=== PATIENT | male | born 1940 | race Caucasian/White ===

== ENCOUNTER 2017-07-15 14:43 | Inpatient (IN) | payer OTHER, MEDICARE ==
[~2017-07-15] VITALS: Ht 177.8 cm; Wt 58.5 kg
[2017-07-15] VITALS (12 sets, daily range): BP systolic 111–158; BP diastolic 52–70; PULSE 32–97; RESP 16–24; TEMP 97.4–98.7; O2SAT 95–100
[~2017-07-15 14:43] MED LIST: METO100T9 PO; MOTI25CH PO; ONDA4TAB7 PO; PROM25TA5 PO
[2017-07-15] MEDS ORDERED: ATOR40TA16 PO (15:05)
[2017-07-15] MEDS ORDERED: AMLO5TAB2 PO (15:05)
[2017-07-15] MEDS ORDERED: AMIO200T PO (15:05)
[2017-07-15] MEDS ORDERED: METO25TA3 PO (15:05)
[2017-07-15] MEDS ORDERED: ASPI-516 CHEW (15:05)
[2017-07-15] MEDS ORDERED: ATROPINE SULFATE 1 MG/10 ML SYRINGE ONE (15:09)
[2017-07-15 15:13] LABS: AUTOMATED NEUTROPHIL # 7.1 TH/MM3 (1.8-7.7); BASOPHIL # 0.1 TH/MM3 (0-0.2); BASOPHIL % 0.8 % (0.0-2.0); EOSINOPHIL # 0.1 TH/MM3 (0-0.4); EOSINOPHIL % 1.3 % (0.0-4.0); HEMATOCRIT 44.1 % (39.0-51.0); LYMPH % 13.5 % (9.0-44.0); LYMPHOCYTE # 1.2 TH/MM3 (1.0-4.8); MEAN CELL VOLUME 90.5 FL (80.0-100.0); MEAN CORPUSCULAR HEMOGLOBIN 29.2 PG (27.0-34.0); MEAN CORPUSCULAR HGB CONC 32.3 % (32.0-36.0); MONO % 6.6 % (0.0-8.0); NEUT % 77.8 % (16.0-70.0); PLATELET COUNT 176 TH/MM3 (150-450); RED BLOOD COUNT 4.88 MIL/MM3 (4.50-5.90); RED CELL DISTRIBUTION WIDTH 15.9 % (11.6-17.2); WHITE BLOOD COUNT 9.1 TH/MM3 (4.0-11.0)
[2017-07-15] MEDS ORDERED: CALCIUM GLUCONATE 10% 1 GM/10 ML VIAL IV PUSH ONE (15:15)
[2017-07-15] MEDS ORDERED: ATROPINE SULFATE 1 MG/ML VIAL IV PUSH PRN (15:15)
[2017-07-15] MEDS ORDERED: SODIUM CHLORIDE 0.9% FLUSH 10 ML FLUSH IVF PRN (15:15)
--- NOTE | 2017-07-15 15:18 | PD ---
HPI Chief Complaint: Cardiac Complaint Time Seen by Provider: 14:52 Travel History International Travel<30 days: No Contact w/Intl Traveler<30days: No Traveled to known affect area: No History of Present Illness HPI 76-year-old male arrives to the ER with dizziness and a sense of weakness. The dizziness was first noticed this morning and the patient notes his pulse was too slow to be read by his manual blood pressure cuff. He exercised a little bit at home and then the blood pressure cuff reported a pulse of 35. The patient states normally his heart rate is somewhat bradycardic in the 40s typically. He notes compliance with metoprolol and amlodipine. He started amlodipine about 3 weeks ago. Strict compliance reported. He describes as vague intermittent chest tightness over the past couple weeks however does not have chest pain at the time of ER evaluation. He denies shortness of breath. He's had no loss of consciousness today. The patient underwent coronary catheterization in September revealing multiple vessel disease and he subsequently went to CABG performed at [facility]. He also underwent myomectomy due to hypertrophic cardiomyopathy. PFSH Past Medical History Hx Anticoagulant Therapy: Yes (ASA) Heart Rhythm Problems: Yes Cardiovascular Problems: Yes (Hypertension, triple bypass) Chemotherapy: Yes Diminished Hearing: No Gastrointestinal Disorders: No Hypertension: Yes Integumentary: No Thyroid Disease: No Influenza Vaccination: No ?: Not Past Surgical History Abdominal Aneurysm Repair: Yes (01/2017) Coronary Artery Bypass Graft: Yes (triple) Thoracic Surgery: No Social History Alcohol Use: Yes Tobacco Use: Yes Allergies-Medications (Allergen,Severity, Reaction): Coded Allergies: No Known Allergies (Unverified Allergy, Unknown, 07/15/17) Reported Meds & Prescriptions Reported Meds & Active Scripts Active Reported Atorvastatin (Atorvastatin Calcium) 40 Mg Tab 40 Mg PO HS Metoprolol Tartrate 25 Mg Tab 25 Mg PO BID Amiodarone (Amiodarone HCl) 200 Mg Tab 200 Mg PO DAILY Amlodipine (Amlodipine Besylate) 5 Mg Tab 5 Mg PO DAILY Aspirin 81 Mg Chew 81 Mg CHEW DAILY Review of Systems Except as stated in HPI: all other systems reviewed are Neg General / Constitutional: No: Fever Cardiovascular: Positive: Chest Pain or Discomfort, No: Dyspnea on exertion Neurologic: Positive: Dizziness Physical Exam Narrative GENERAL: 76-year-old male well-nourished well-developed speaking full sentences mild distress SKIN: Focused skin assessment warm/dry. HEAD: Atraumatic. Normocephalic. EYES: Pupils equal and round. No scleral icterus. No injection or drainage. ENT: No nasal bleeding or discharge. Mucous membranes pink and moist. NECK: Trachea midline. No JVD. CARDIOVASCULAR: Heart rate approximately 36. Regular. Skin is warm and dry. Well-healed sternotomy scar. RESPIRATORY: No accessory muscle use. Clear to auscultation. Breath sounds equal bilaterally. GASTROINTESTINAL: Abdomen soft, non-tender, nondistended. Hepatic and splenic margins not palpable. MUSCULOSKELETAL: No obvious deformities. No clubbing. No cyanosis. No edema. NEUROLOGICAL: Awake and alert. No obvious cranial nerve deficits. Motor grossly within normal limits. Normal speech. PSYCHIATRIC: Appropriate mood and affect; insight and judgment normal. Data Data Last Documented VS Vital Signs Date Time Temp Pulse Resp B/P (MAP) Pulse Ox O2 Delivery O2 Flow Rate FiO2 07/15/17 15:31 37 134/60 (84) 122/52 (75) 07/15/17 15:20 98 Nasal Cannula 2.00 07/15/17 15:15 20 07/15/17 15:05 97.4 Vital signs reviewed Orders Orders Electrocardiogram (07/15/17 15:01) Basic Metabolic Panel (Bmp) (07/15/17 15:01) Ckmb (Isoenzyme) Profile (07/15/17 15:01) Complete Blood Count With Diff (07/15/17 15:01) Magnesium (Mg) (07/15/17 15:01) Prothrombin Time / Inr (Pt) (07/15/17 15:01) Act Partial Throm Time (Ptt) (07/15/17 15:01) Troponin I (07/15/17 15:01) Chest, Single Ap (07/15/17 15:01) Ecg Monitoring (07/15/17 15:01) Bilateral Bp Monitoring (07/15/17 15:01) Iv Access Insert/Monitor (07/15/17 15:01) Oximetry (07/15/17 15:01) Oxygen Administration (07/15/17 15:01) Sodium Chloride 0.9% Flush (Ns Flush) (07/15/17 15:15) Atropine Inj (Atropine Inj) (07/15/17 15:15) Calcium Gluconate Inj (Calcium Gluconate (07/15/17 15:15) Atropine Inj (Atropine Inj) (07/15/17 15:09) Atropine Inj (Atropine Inj) (07/15/17 15:45) Atropine Inj (Atropine Inj) (07/15/17 15:45) Admit Order (Ed Use Only) (07/15/17 ) Self Propelled Mining Machine Operator / Telemetry [id number] (07/15/17 15:45) Vital Signs (Adult) Q4H (07/15/17 15:45) Diet Npo (07/15/17 Dinner) Activity Bed Rest (07/15/17 15:45) Notify Dr: Other (07/15/17 15:45) Labs Laboratory Tests Test 07/15/17 15:09 White Blood Count 9.1 TH/MM3 Red Blood Count 4.88 MIL/MM3 Hemoglobin 14.2 GM/DL Hematocrit 44.1 % Mean Corpuscular Volume 90.5 FL Mean Corpuscular Hemoglobin 29.2 PG Mean Corpuscular Hemoglobin Concent 32.3 % Red Cell Distribution Width 15.9 % Platelet Count 176 TH/MM3 Mean Platelet Volume 9.0 FL Neutrophils (%) (Auto) 77.8 % Lymphocytes (%) (Auto) 13.5 % Monocytes (%) (Auto) 6.6 % Eosinophils (%) (Auto) 1.3 % Basophils (%) (Auto) 0.8 % Neutrophils # (Auto) 7.1 TH/MM3 Lymphocytes # (Auto) 1.2 TH/MM3 Monocytes # (Auto) 0.6 TH/MM3 Eosinophils # (Auto) 0.1 TH/MM3 Basophils # (Auto) 0.1 TH/MM3 CBC Comment DIFF FINAL Differential Comment Prothrombin Time 10.7 SEC Prothromb Time International Ratio 1.0 RATIO Activated Partial Thromboplast Time 28.9 SEC Blood Urea Nitrogen 31 MG/DL Creatinine 1.80 MG/DL Random Glucose 77 MG/DL Calcium Level 8.5 MG/DL Magnesium Level 2.3 MG/DL Sodium Level 136 MEQ/L Potassium Level 4.7 MEQ/L Chloride Level 103 MEQ/L Carbon Dioxide Level 25.9 MEQ/L Anion Gap 7 MEQ/L Estimat Glomerular Filtration Rate 37 ML/MIN Total Creatine Kinase 61 U/L Troponin I 0.02 NG/ML MDM Medical Decision Making Medical Screen Exam Complete: Yes Emergency Medical Condition: Yes Medical Record Reviewed: Yes Differential Diagnosis NSTEMI, unstable angina, coronary vasospasm, PE, PTX, aortic dissection, pericarditis, myocarditis, endocarditis, PNA, esophageal disease, aneurysm, musculoskeletal etiologies, anxiety, cocaine/sympathomimetic abuse Narrative Course EKG shows a sinus bradycardia with a rate of 34 left bundle branch block morphology. The left bundle-branch morphology has been observed before most recently September 2015. Shortly following arrival the patient received atropine 0.5 twice followed by a gram of calcium gluconate. The heart rate increased 45 for about less than a minute and then decreased to 35 again. Patient has no chest pain or shortness of breath although does report some mild dizziness. His skin has been warm and dry since arrival and the blood pressure is been as high as 150/90. Case was discussed with Dr. Bailey, as patient follows with Dr. Henderson, who advises transfer to the main site in [facility]. CBC & BMP Diagram 07/15/17 15:09 Calcium Level 8.5, Magnesium Level 2.3 Troponin 0.02 Last 24 hours Impressions Chest X-Ray 07/15/17 1501 Signed Impressions: Service Date/Time: Tuesday, July 16, 2017 03:10 - CONCLUSION: Normal examination. Clips and wires suggest CABG. Shelton Martinez MD A second 1 mg dose of atropine ordered along with a second dose of calcium gluconate. Glucagon bolus and drip initiated. Case d/w Dr Mckeon for note keeper service Pt monitored in ER with HR trending toward 34 with stable BP as listed here: Vital Signs Date Time Temp Pulse Resp B/P (MAP) Pulse Ox O2 Delivery O2 Flow Rate FiO2 07/15/17 15:31 37 134/60 (84) 122/52 (75) 07/15/17 15:20 98 Nasal Cannula 2.00 07/15/17 15:15 38 20 153/64 (93) 99 Nasal Cannula 2.00 07/15/17 15:05 97.4 33 18 146/63 (90) 97 Room Air 07/15/17 15:00 33 07/15/17 14:45 98.7 36 16 117/53 (74) 100 NO significant change after glucagon although only 1 mg IV given 2/2 short supply in pharmacy Pt notes he runs relatively bradycardic typically in the 40s over the past few years Critical Care Narrative Aggregate critical care time was 35 minutes. Time to perform other separately billable procedures was not included in the critical care time. My time did not include minutes spent treating any other patients simultaneously or on activities that did not directly contribute to the patient's treatment. The services I provided to this patient were to treat and/or prevent clinically significant deterioration that could result in: Cardiopulmonary arrest, hemodynamic instability I provided critical care services requiring my management, as noted below: Chart data review, documentation time, medication orders and management, vital sign assessments/reviewing monitor data, ordering and reviewing lab tests, ordering and interpreting/reviewing x-rays and diagnostic studies, care of the patient and discussion of the patient with the admitting physicians. Diagnosis Primary Impression: Bradycardia Admitting Information Admitting Physician Requests: Javan Wolfe MD Jul 15, 2017 15:18
[2017-07-15 15:20] LABS: HEMO FLAGS DIFF FINAL
[2017-07-15 15:22] LABS: POTASSIUM 4.7 MEQ/L (3.5-5.1)
--- NOTE | 2017-07-15 15:22 | RADRPT ---
EXAM DATE/TIME: 07/15/2017 15:04 CORRECTION Corrected on: July 21, 2017; fixed date and time [facility] COMPARISON: No previous studies available for comparison. INDICATIONS : Chest pain. MEDICAL HISTORY : None. SURGICAL HISTORY : None. ENCOUNTER: Initial ACUITY: 1 day PAIN SCORE: 7/10 LOCATION: Bilateral chest FINDINGS: A single view of the chest demonstrates the lungs to be symmetrically aerated without evidence of mas s, infiltrate or effusion. The cardiomediastinal contours are unremarkable. Osseous structures are intact. CONCLUSION: Normal examination. Clips and wires suggest CABG. Shelton Martinez MD on July 15, 2017 at 15:20 Board Certified Radiologist. Board Certified Radiologist. This report was verified electronically.
[2017-07-15 15:25] LABS: BICARBONATE 25.9 MEQ/L (21.0-32.0); MAGNESIUM 2.3 MG/DL (1.5-2.5)
[2017-07-15] MEDS ORDERED: ATROPINE SULFATE 1 MG/ML VIAL IV PUSH ONE ×2 (15:45)
[2017-07-15] MEDS ORDERED: ONDANSETRON HCL 4 MG/2 ML VIAL IV PUSH PRN ×2 (16:00→21:15)
[2017-07-15] MEDS ORDERED: GLUCAGON 1 MG/ML VIAL IV PUSH PRN (16:00)
[2017-07-15] MEDS ORDERED: ATROPINE SULFATE 1 MG/10 ML SYRINGE IV PUSH ONE (16:00)
[2017-07-15] MEDS ORDERED: CALCIUM GLUCONATE INJ 1 GM in DEXTROSE 5% IN WATER 100ML INJ 100 ML IV ONE ×2 (16:00)
[2017-07-15 16:09] LABS: APTT (PATIENT) 28.9 SEC (24.3-30.1); PROTHROMBIN TIME - PATIENT 10.7 SEC (9.8-11.6)
[2017-07-15] MEDS ORDERED: GLUCAGON 1 MG/ML VIAL IV PUSH ONE (16:15)
[2017-07-15] MEDS ORDERED: GLUCAGON INJ 20 MG in DEXTROSE 5% IN WATER 100ML INJ 80 ML IV PRN ×2 (17:00)
[2017-07-15] MEDS: SODIUM CHLOR 0.9% 1000 ML INJ 1,000 ML IV SCH (21:13)
[2017-07-15] MEDS ORDERED: hydrALAZINE HCL 20 MG/ML VIAL IV PUSH PRN (21:15)
[2017-07-15] MEDS ORDERED: BISACODYL 10 MG SUPP RECTAL PRN (21:15)
[2017-07-15] MEDS ORDERED: SODIUM CHLORIDE 0.9% FLUSH 10 ML FLUSH IV FLUSH PRN (21:15)
[2017-07-15] MEDS ORDERED: RESP: ALBUTEROL 2.5 MG/IPRATROPIUM 0.5 MG NEB (PRN) INH (21:15)
[2017-07-15] MEDS ORDERED: ACETAMINOPHEN 325 MG TAB PO PRN (21:15)
[2017-07-15] MEDS ORDERED: ZOLPIDEM TARTRATE 5 MG TAB PO PRN (21:15)
[2017-07-15] MEDS ORDERED: SENNOSIDES 8.6 MG TAB PO PRN (21:15)
[2017-07-15] MEDS ORDERED: MAGNESIUM HYDROXIDE SUSP 30 ML CUP PO PRN (21:15)
[2017-07-15] MEDS ORDERED: CHLORHEXIDINE GLUCONATE 2 % 1 PACK (2 CLOTHS) TOP PRN (21:15)
[2017-07-15] MEDS ORDERED: LACTULOSE SYRUP 20 GM/30 ML CUP PO PRN (21:15)
[2017-07-15] MEDS ORDERED: MISCELLANEOUS NURSING INFORMATION XX SCH (21:15)
--- NOTE | 2017-07-15 21:17 | HHI.HP ---
HPI Service Critical Care Medicine Primary Care Physician Abilio Childers MD Admission Diagnosis Bradycardia Diagnosis: Travel History International Travel<30 Days: No Contact w/Intl Traveler <30 Da: No Traveled to Known Affected Are: No History of Present Illness 76-year-old male presented initially to emergency department at [place] with dizziness and a sense of weakness. He has noticed the dizziness for the first time today in the morning when he tries to measure his blood pressure and was unable to obtain any readings so he checked his his pulse which was too slow to be read by his manual blood pressure cuff as well. He exercised a little bit at home to increase his heartrate and then the blood pressure cuff reported a pulse of 35. The patient states normally his heart rate is somewhat bradycardic in the 40s typically. He admits compliance with metoprolol and amlodipine. He started amlodipine about 3 weeks ago. He describes also some vague intermittent chest tightness over the past couple weeks however did not have a chest pain at the time of ER evaluation neither during my assessment. He denies shortness of breath. He's had no loss of consciousness today just dizziness. The patient underwent coronary catheterization in September revealing multiple vessel disease and he subsequently went to CABG performed at [facility]. He also underwent myomectomy due to hypertrophic cardiomyopathy. Review of Systems Constitutional: COMPLAINS OF: Diaphoretic episodes, Fatigue, DENIES: Fever, Weight gain, Weight loss, Chills, Dizziness, Change in appetite, Night Sweats Endocrine: DENIES: Heat/cold intolerance, Polydipsia, Polyuria, Polyphagia Eyes: COMPLAINS OF: Blurred vision, DENIES: Diplopia, Eye inflammation, Eye pain, Vision loss, Photosensitivity, Double Vision Ears, nose, mouth, throat: DENIES: Tinnitus, Hearing loss, Vertigo, Nasal discharge, Oral lesions, Throat pain, Hoarseness, Ear Pain, Running Nose, Epistaxis, Sinus Pain, Toothache, Odynophagia Respiratory: DENIES: Apneas, Cough, Snoring, Wheezing, Hemoptysis, Sputum production, Shortness of breath Cardiovascular: COMPLAINS OF: Chest pain, DENIES: Palpitations, Syncope, Dyspnea on Exertion, PND, Lower Extremity Edema, Orthopnea, Claudication Gastrointestinal: DENIES: Abdominal pain, Black stools, Bloody stools, Constipation, Diarrhea, Nausea, Vomiting, Difficulty Swallowing, Anorexia Genitourinary: DENIES: Sexual dysfunction, Urinary frequency, Urinary incontinence, Urgency, Hematuria, Dysuria, Nocturia, Penile Discharge, Testicular Pain, Testicular Swelling Musculoskeletal: DENIES: Joint pain, Muscle aches, Stiffness, Joint Swelling, Back pain, Neck pain Integumentary: DENIES: Abnormal pigmentation, Nail changes, Pruritus, Rash Hematologic/lymphatic: DENIES: Bruising, Lymphadenopathy Immunologic/allergic: DENIES: Eczema, Urticaria Neurologic: DENIES: Abnormal gait, Headache, Localized weakness, Paresthesias, Seizures, Speech Problems, Tremor, Poor Balance Psychiatric: DENIES: Anxiety, Confusion, Mood changes, Depression, Hallucinations, Agitation, Suicidal Ideation, Homicidal Ideation, Delusions Past Family Social History Allergies: Coded Allergies: No Known Allergies (Unverified Allergy, Unknown, 07/15/17) Past Medical History Hx Anticoagulant Therapy: Yes (ASA) Heart Rhythm Problems: Yes Cardiovascular Problems: Yes (Hypertension, triple bypass) Hypertension: Yes Past Surgical History Abdominal Aneurysm Repair: Yes (01/2017) Coronary Artery Bypass Graft: Yes (triple) Reported Medications Reported Meds & Active Scripts Active Reported Atorvastatin (Atorvastatin Calcium) 40 Mg Tab 40 Mg PO HS Metoprolol Tartrate 25 Mg Tab 25 Mg PO BID Amiodarone (Amiodarone HCl) 200 Mg Tab 200 Mg PO DAILY Amlodipine (Amlodipine Besylate) 5 Mg Tab 5 Mg PO DAILY Aspirin 81 Mg Chew 81 Mg CHEW DAILY Active Ordered Medications Current Medications Medications (Trade) Dose Ordered Sig/Cody Route PRN Reason Start Time Stop Time Status Last Admin Dose Admin Sodium Chloride (NS Flush) 2 ml UNSCH PRN IVF FLUSH AFTER USING IV ACCESS 07/15/17 15:15 07/15/17 15:14 Aspirin (Aspirin Chew) 81 mg DAILY CHEW 07/16/17 09:00 Atorvastatin Calcium (Lipitor) 40 mg HS PO 07/16/17 21:00 Hydralazine HCl (Apresoline Inj) 20 mg Q4H PRN IV PUSH SBP>160, DBP>90 07/15/17 21:15 Sodium Chloride 1,000 ml @ 84 mls/hr [id number] IV 07/15/17 21:13 Sodium Chloride (NS Flush) 2 ml UNSCH PRN IV FLUSH FLUSH AFTER USING IV ACCESS 07/15/17 21:15 Sodium Chloride (NS Flush) 2 ml BID IV FLUSH 07/16/17 09:00 Acetaminophen (Tylenol) 650 mg Q6H PRN PO PAIN 1-10 AND/OR FEVER >101F 07/15/17 21:15 Ondansetron HCl (Zofran Inj) 4 mg Q6H PRN IV PUSH NAUSEA OR VOMITING 07/15/17 21:15 Zolpidem Tartrate (Ambien) 5 mg HS PRN PO INSOMNIA 07/15/17 21:15 Albuterol/ Ipratropium (Duoneb Neb) 1 ampule Q2HR NEB PRN INH WHEEZING 07/15/17 21:15 Heparin Sodium (Porcine) (Heparin Inj) 5,000 units Q8H SQ 07/15/17 22:00 Miscellaneous Information 1 [id number] XX 07/15/17 21:15 Chlorhexidine Gluconate (Chlorhexidine 2% Cloth) 3 pack Taper DAILY@04 TOP 07/16/17 04:00 07/12/18 03:59 Chlorhexidine Gluconate (Chlorhexidine 2% Cloth) 3 pack UNSCH PRN TOP HYGIENIC CARE 07/15/17 21:15 Senna/Docusate Sodium (Kendra-Colace) 1 tab BID PO 07/16/17 09:00 Magnesium Hydroxide (Milk Of Magnesia Liq) 30 ml Q12H PRN PO Mild constipation 07/15/17 21:15 Sennosides (Senokot) 17.2 mg Q12H PRN PO Moderate constipation 07/15/17 21:15 Bisacodyl (Dulcolax Supp) 10 mg DAILY PRN RECTAL SEVERE CONSITIPATION 07/15/17 21:15 Lactulose (Lactulose Liq) 30 ml DAILY PRN PO SEVERE CONSITIPATION 07/15/17 21:15 Family History No family history of early coronary artery disease or malignancy Social History Denies History of tobacco alcohol or illicit drug abuse Physical Exam Vital Signs Vital Signs Date Time Temp Pulse Resp B/P (MAP) Pulse Ox O2 Delivery O2 Flow Rate FiO2 07/15/17 18:35 98.2 33 24 132/62 (85) 100 07/15/17 17:48 07/15/17 17:35 34 17 121/62 (81) 100 Nasal Cannula 2.00 07/15/17 17:05 32 18 111/58 (75) 100 Nasal Cannula 2.00 07/15/17 16:35 36 18 125/53 (77) 98 Nasal Cannula 2.00 07/15/17 16:25 16 99 Nasal Cannula 2.00 07/15/17 16:05 36 18 128/54 (78) 98 Nasal Cannula 2.00 07/15/17 15:31 37 134/60 (84) 122/52 (75) 07/15/17 15:20 98 Nasal Cannula 2.00 07/15/17 15:15 38 20 153/64 (93) 99 Nasal Cannula 2.00 07/15/17 15:05 97.4 33 18 146/63 (90) 97 Room Air 07/15/17 15:00 33 07/15/17 14:45 98.7 36 16 117/53 (74) 100 Physical Exam GENERAL: Well-nourished, well-developed patient. SKIN: Warm and dry. HEAD: Normocephalic. EYES: No scleral icterus. No injection or drainage. NECK: Supple, trachea midline. No JVD or lymphadenopathy. CARDIOVASCULAR: Regular rate and rhythm without murmurs, gallops, or rubs. RESPIRATORY: Breath sounds equal bilaterally. No accessory muscle use. GASTROINTESTINAL: Abdomen soft, non-tender, nondistended. MUSCULOSKELETAL: No cyanosis, or edema. BACK: Nontender without obvious deformity. NEURO EXAM: GCS: M 6 V 5 E 4 Mental Status: The patient is alert and oriented to person, place, and time with normal speech. Cranial Nerves: Visual acuity intact bilaterally. Visual harvey normal in all quadrants. Pupils are round, reactive to light. Extraocular movements are intact without ptosis. Hearing is normal bilaterally. Voice is normal. Tongue protrudes midline and moves symmetrically. Reflexes: Biceps, patellar, and Achilles are 2/4 bilaterally. No clonus. Sensation: Sensation is intact bilaterally to pain and light touch. Two-point discrimination is intact. Motor: Good muscle tone. Strength is 5/5 bilaterally. Cerebellar: Lgtady-ac-ioin and ulzy-[id number]-pkwb test normal bilaterally. Laboratory Laboratory Tests Test 07/15/17 15:09 White Blood Count 9.1 Red Blood Count 4.88 Hemoglobin 14.2 Hematocrit 44.1 Mean Corpuscular Volume 90.5 Mean Corpuscular Hemoglobin 29.2 Mean Corpuscular Hemoglobin Concent 32.3 Red Cell Distribution Width 15.9 Platelet Count 176 Mean Platelet Volume 9.0 Neutrophils (%) (Auto) 77.8 Lymphocytes (%) (Auto) 13.5 Monocytes (%) (Auto) 6.6 Eosinophils (%) (Auto) 1.3 Basophils (%) (Auto) 0.8 Neutrophils # (Auto) 7.1 Lymphocytes # (Auto) 1.2 Monocytes # (Auto) 0.6 Eosinophils # (Auto) 0.1 Basophils # (Auto) 0.1 CBC Comment DIFF FINAL Differential Comment Prothrombin Time 10.7 Prothromb Time International Ratio 1.0 Activated Partial Thromboplast Time 28.9 Blood Urea Nitrogen 31 Creatinine 1.80 Random Glucose 77 Calcium Level 8.5 Magnesium Level 2.3 Sodium Level 136 Potassium Level 4.7 Chloride Level 103 Carbon Dioxide Level 25.9 Anion Gap 7 Estimat Glomerular Filtration Rate 37 Total Creatine Kinase 61 Troponin I 0.02 Result Diagram: 07/15/17 1509 07/15/17 1509 Imaging Last 24 hours Impressions Chest X-Ray 07/15/17 1501 Signed Impressions: Service Date/Time: Sunday, July 16, 2017 03:10 - CONCLUSION: Normal examination. Clips and wires suggest CABG. MD Marnie Cruz VTE Risk Assessment Caprini VTE Risk Assessment: Mod/High Risk (score >= 2) Caprini Risk Assessment Model Point Value = 1 Point Value = 2 Point Value = 3 Point Value = 5 Age 41-60 Minor surgery BMI > 25 kg/m2 Swollen legs Varicose veins or History of unexplained or recurrent spontaneous Oral contraceptives or hormone replacement Sepsis (< 1 month) Serious lung disease, including pneumonia (< 1 month) Abnormal pulmonary function Acute myocardial infarction Congestive heart failure (< 1 month) History of inflammatory bowel disease Medical patient at bed rest Age 61-74 Arthroscopic surgery Major open surgery (> 45 min) Laparoscopic surgery (> 45 min) Malignancy Confined to bed (> 72 hours) Immobilizing plaster cast Central venous access Age >= 75 History of VTE Family history of VTE Factor V Leiden Prothrombin [id number] Lupus anticoagulant Anticardiolipin antibodies Elevated serum homocysteine Heparin-induced thrombocytopenia Other congenital or acquired thrombophilia Stroke (< 1 month) Elective arthroplasty Hip, pelvis, or leg fracture Acute spinal cord injury (< 1 month) Prophylaxis Regimen Total Risk Factor Score Risk Level Prophylaxis Regimen 0-1 Low Early ambulation 2 Moderate Order ONE of the following: *Sequential Compression Device (SCD) *Heparin 5000 units SQ BID 3-4 Higher Order ONE of the following medications: *Heparin 5000 units SQ TID *Enoxaparin/Lovenox 40 mg SQ daily (WT < 150 kg, CrCl > 30 mL/min) *Enoxaparin/Lovenox 30 mg SQ daily (WT < 150 kg, CrCl > 10-29 mL/min) *Enoxaparin/Lovenox 30 mg SQ BID (WT < 150 kg, CrCl > 30 mL/min) AND/OR *Sequential Compression Device (SCD) 5 or more Highest Order ONE of the following medications: *Heparin 5000 units SQ TID (Preferred with Epidurals) *Enoxaparin/Lovenox 40 mg SQ daily (WT < 150 kg, CrCl > 30 mL/min) *Enoxaparin/Lovenox 30 mg SQ daily (WT < 150 kg, CrCl > 10-29 mL/min) *Enoxaparin/Lovenox 30 mg SQ BID (WT < 150 kg, CrCl > 30 mL/min) AND *Sequential Compression Device (SCD) Assessment and Plan Assessment and Plan Bradycardia - Hold metoprolol and amiodarone - Transcutaneous pacer pads - Telemetry - Further management per patient's system software developer Dr. Portillo Hypotension - Due to above - Improving with improved heart rate - Dopamine if needed Altered mental status with dizziness - Due to bradycardia and hypotension - Monitor neuro checks per unit protocol Dyslipidemia - Atorvastatin Cardiomyopathy - Management per cardiology Coronary artery disease - Continue aspirin - Atorvastatin - Series of troponins and EKGs DVT GI prophylaxis - Teds SCDs - Subcutaneous heparin - Heart healthy diet Critical Care: The total critical care time was 35 minutes. Time to perform other separately billable procedures was not included in the critical care time. Shahbaz Pompa MD Jul 15, 2017 9:17 pm
[2017-07-15] MEDS: HEPARIN SODIUM - SQ 10,000 UNITS/ML VIAL SQ SCH (23:33)
[2017-07-16] VITALS (12 sets, daily range): BP systolic 133–166; BP diastolic 60–74; PULSE 40–47; RESP 19–22; TEMP 97.6–98.8; O2SAT 95–97
[2017-07-16] MEDS: CHLORHEXIDINE GLUCONATE 2 % 1 PACK (2 CLOTHS) TOP SCH (04:00)
[2017-07-16 04:21] LABS: AUTOMATED NEUTROPHIL # 4.4 TH/MM3 (1.8-7.7); BASOPHIL # 0.1 TH/MM3 (0-0.2); BASOPHIL % 1.1 % (0.0-2.0); EOSINOPHIL # 0.1 TH/MM3 (0-0.4); EOSINOPHIL % 1.5 % (0.0-4.0); HEMATOCRIT 40.5 % (39.0-51.0); HEMO FLAGS DIFF FINAL; LYMPH % 21.6 % (9.0-44.0); LYMPHOCYTE # 1.4 TH/MM3 (1.0-4.8); MEAN CELL VOLUME 90.7 FL (80.0-100.0); MEAN CORPUSCULAR HEMOGLOBIN 31.2 PG (27.0-34.0); MEAN CORPUSCULAR HGB CONC 34.3 % (32.0-36.0); MONO % 8.9 % (0.0-8.0); NEUT % 66.9 % (16.0-70.0); PLATELET COUNT 139 TH/MM3 (150-450); RED BLOOD COUNT 4.47 MIL/MM3 (4.50-5.90); RED CELL DISTRIBUTION WIDTH 16.3 % (11.6-17.2); WHITE BLOOD COUNT 6.6 TH/MM3 (4.0-11.0)
[2017-07-16 04:45] LABS: ANION GAP 7 MEQ/L (5-15); AST (GOT) 18 U/L (15-37); BICARBONATE 24.9 MEQ/L (21.0-32.0); BLOOD UREA NITROGEN 27 MG/DL (7-18); CHLORIDE 108 MEQ/L (98-107); GLOMERULAR FILTRATION RATE 53 ML/MIN (>89); POTASSIUM 4.1 MEQ/L (3.5-5.1); SODIUM (NA) 140 MEQ/L (136-145)
[2017-07-16 04:46] LABS: ALT (GPT) 22 U/L (12-78)
[2017-07-16 04:48] LABS: ALKALINE PHOSPHATASE 105 U/L (45-117); TOTAL BILIRUBIN ADULT 0.6 MG/DL (0.2-1.0)
[2017-07-16] MEDS: HEPARIN SODIUM - SQ 10,000 UNITS/ML VIAL SQ SCH ×3 (05:06→21:16)
[2017-07-16] MEDS: SODIUM CHLORIDE 0.9% FLUSH 10 ML FLUSH IV FLUSH SCH ×2 (09:25→21:00)
[2017-07-16] MEDS: DOCUSATE SODIUM 50 MG/SENNA 8.6 MG TAB PO SCH ×2 (09:25→21:00)
[2017-07-16] MEDS: SODIUM CHLOR 0.9% 1000 ML INJ 1,000 ML IV SCH (09:25)
[2017-07-16] MEDS: ASPIRIN 81 MG CHEW TAB CHEW SCH (09:25)
--- NOTE | 2017-07-16 11:43 | MB ---
cc: SUE BERGMAN DO DATE OF CONSULTATION: 07/16/17 REASON FOR CONSULTATION Symptomatic bradycardia. HISTORY OF PRESENT ILLNESS Jesus Guadalupe is a pleasant 76-year-old male who sees my partner Dr. Henderson in the office and presented to the emergency department at [facility] with dizziness and a sense of weakness. He woke up the day before and was noted to be dizzy in the morning and attempted to take his blood pressure and was unable to obtain any readings so he checked his pulse which was too slow to read by his manual blood pressure cuff as well. He decided to exercise a little bit to try to increase his heart rate and blood pressure, and he then attempted to get his heart rate again and his machine states that it was 35. The patient states that his normal heart rate is somewhere in the mid 40s. He has been on metoprolol for some time. He is on amiodarone but overall is unsure why or when this was started possibly when he had his abdominal aortic aneurysm surgery and has recently been started on amlodipine around three weeks ago. In discussing with him his other symptoms, he states that he has never had chest pain or pressure and is not feeling overall short of breath. Lastly, he has not lost consciousness just been dizzy more over the past 24 hours. PAST MEDICAL HISTORY 1. Coronary artery disease. 2. Hypertension. 3. Previous abdominal aortic aneurysm. 4. BPH. 5. Hyperlipidemia. 6. History of hypertrophic cardiomyopathy. 7. Peripheral artery disease. PAST SURGICAL HISTORY 1. Cardiac catheterization (October 01, 2015): Right coronary artery mid to distal RCA 70%, left main no significant disease, left circumflex/obtuse marginal mid stenosis 60% between the first and second marginal arteries, LAD mid to distal is diffusely diseased up to 90%. 2. CABG x3 (2015 at [facility]). 3. Myomectomy at the time of CABG (2015 at [facility]). 4. Open abdominal aneurysm repair (January, at [facility]). ALLERGIES NO KNOWN DRUG ALLERGIES. MEDICATIONS 1. Amiodarone 200 mg daily. 2. Lipitor 40 mg every night. 3. Metoprolol tartrate 25 mg b.i.d. 4. Amlodipine 5 mg daily. 5. Aspirin 81 mg daily. FAMILY HISTORY Denies premature coronary artery disease or sudden cardiac within the family. SOCIAL HISTORY Denies drug abuse. Smokes about 5-10 cigarettes a day. Will drink socially rarely. REVIEW OF SYSTEMS 14-systems were reviewed including osteopathic, pertinent positives and negatives above otherwise negative. PHYSICAL EXAMINATION VITAL SIGNS: Temperature 98.8, heart rate 43, blood pressure 133/60, respirations 20, pulse ox 96% on 2 liters. GENERAL: In general, the patient appears well in no acute distress. Alert, awake and oriented x3. HEAD, EYES, EARS, NOSE AND THROAT: Extraocular muscles intact. Mucous membranes moist. NECK: Supple. No JVD at 45 degrees. No carotid bruits heard bilaterally. Carotid upstroke is brisk in nature. HEART: Heart is regular rhythm but bradycardic. There is a 2/6 holosystolic murmur noted at the apex. LUNGS: Clear to auscultation bilaterally. No wheezes, rales or rhonchi. ABDOMEN: Abdomen is soft, nontender, nondistended. No organomegaly noted. EXTREMITIES: No clubbing, cyanosis or edema. Femoral and distal pulses intact bilaterally. NEUROLOGICAL: No focal deficits. SKIN: Warm, dry and intact. OSTEOPATHIC: No kyphoscoliosis, lordosis or paraspinal tender points. LABORATORY FINDINGS Hemoglobin 13.9, hematocrit 40.5, platelets 139. Potassium 4.1, BUN 27, creatinine 1.32, troponin negative x3. Electrocardiogram (July 16, 2017 at 0245): Sinus rhythm with first-degree AV block, left bundle branch block with secondary ST-T wave changes. IMPRESSIONS 1. Symptomatic bradycardia. 2. Coronary artery disease with a history of CABG x3 (September, at [facility]). 3. History of [place] status post myomectomy September, at [facility]). 4. History of abdominal aortic aneurysm status post open repair (January, at [facility]). 5. Tobacco abuse. 6. Chronic kidney disease. RECOMMENDATIONS 1. Mr. Gregorio appears to have symptomatic bradycardia and this is most likely due to his beta-emilee and amiodarone therapy. We will hold these at this time and continue to watch him on telemetry. 2. At this time, he is cardiovascularly and hemodynamically stable and does not require a temporary pacemaker or further chronotropic medicines to help keep his heart rate elevated. 3. He is unsure why he is on amiodarone therapy, but he believes that after his open aneurysm repair he was in the ICU with a rapid heart rate and it may have been started then. 4. I will attempt to review his previous records from [facility] to see if this is when amiodarone was started and if it was due to atrial fibrillation. 5. We will check a 2D echo to look at his overall left ventricular function, cardiac structure and possible valvulopathies. 6. We will plan on watching him at least another 24 hours. Overall, amiodarone may stay in his system for over a month and so he may need further rhythm analysis once outpatient. Thank you for allowing me to see Jesus Guadalupe. If there are any questions, please do not hesitate to call. Sue Bergman DO VGP/BJF /9:36 AM /10:58 AM
--- NOTE | 2017-07-16 11:47 | HHI.CCPN ---
Subjective Remarks/Hospital Course 76-year-old male presented initially to emergency department at [facility] with dizziness and a sense of weakness. He has noticed the dizziness for the first time today in the morning when he tries to measure his blood pressure and was unable to obtain any readings so he checked his his pulse which was too slow to be read by his manual blood pressure cuff as well. He exercised a little bit at home to increase his heartrate and then the blood pressure cuff reported a pulse of 35. The patient states normally his heart rate is somewhat bradycardic in the 40s typically. He admits compliance with metoprolol and amlodipine. He started amlodipine about 3 weeks ago. He describes also some vague intermittent chest tightness over the past couple weeks however did not have a chest pain at the time of ER evaluation neither during my assessment. He denies shortness of breath. He's had no loss of consciousness today just dizziness. The patient underwent coronary catheterization in September revealing multiple vessel disease and he subsequently went to CABG performed at [facility]. He also underwent myomectomy due to hypertrophic cardiomyopathy. Subjective: 07/16: No acute events overnight. Patient's heart rate returned to his baseline mid 40s. She remained normotensive since admission to hospital. Patient tolerating regular diet, up out of bed to chair. All antihypertensive medications placed on hold. Cardiology is following. Objective Vital Signs Date Time Temp Pulse Resp B/P (MAP) Pulse Ox O2 Delivery O2 Flow Rate FiO2 07/16/17 09:00 96 07/16/17 06:00 43 07/16/17 04:00 98.8 20 133/60 (84) 07/15/17 17:35 Nasal Cannula 2.00 Intake and Output 07/16/17 07/16/17 07/17/17 08:00 16:00 00:00 Intake Total 912 ml 319 ml Output Total 2300 ml Balance -1388 ml 319 ml Result Diagram: 07/16/17 0351 07/16/17 0351 Imaging Last 24 hours Impressions Chest X-Ray 07/15/17 1501 Signed Impressions: Service Date/Time: Sunday, July 16, 2017 03:10 - CONCLUSION: Normal examination. Clips and wires suggest CABG. Shelton Martinez MD Objective Remarks GENERAL: Well-nourished, well-developed patient sitting up in bed in no acute distress SKIN: Warm and dry. HEAD: Normocephalic. EYES: No scleral icterus. No injection or drainage. NECK: Supple, trachea midline. No JVD or lymphadenopathy. CARDIOVASCULAR: Regular rate and rhythm without murmurs, gallops, or rubs. Telemetry sinus bradycardia RESPIRATORY: Breath sounds equal bilaterally. No accessory muscle use. GASTROINTESTINAL: Abdomen soft, non-tender, nondistended. MUSCULOSKELETAL: No cyanosis, or edema. BACK: Nontender without obvious deformity. NEURO EXAM: GCS: M 6 V 5 E 4 Mental Status: The patient is alert and oriented to person, place, and time with normal speech. Cranial Nerves: Visual acuity intact bilaterally. Visual harvey normal in all quadrants. Pupils are round, reactive to light. Extraocular movements are intact without ptosis. Hearing is normal bilaterally. Voice is normal. Tongue protrudes midline and moves symmetrically. Reflexes: Biceps, patellar, and Achilles are 2/4 bilaterally. No clonus. Sensation: Sensation is intact bilaterally to pain and light touch. Two-point discrimination is intact. Motor: Good muscle tone. Strength is 5/5 bilaterally. Cerebellar: [id number]-[id number] and [id number] test normal bilaterally. 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 Portillo/ Cardiology Hypotension-resolved - Due to above - HR to baseline 45 - Dopamine if needed Altered mental status with dizziness-is all - Chin normotensive with heart rate of 45 - Monitor neuro checks per unit protocol Dyslipidemia - Atorvastatin Cardiomyopathy - Management per cardiology Coronary artery disease - Continue aspirin - Atorvastatin - Series of troponins and EKGs DVT GI prophylaxis - Teds SCDs - Subcutaneous heparin - Heart healthy diet Dispo: Level 2 Patient doing well plan transfer to [facility]. Transfer to [facility] floor with telemetry. Discussed with patient, patient's and FILM SOUND ENGINEER at bedside Physician Pema Bell MD Jul 16, 2017 11:47
--- NOTE | 2017-07-16 14:35 | EKG ---
Date Performed: 07/16/2017 Time Performed: 02:45:18 PTAGE: 76 years EKG: Sinus bradycardia with 1st degree A-V block Left bundle branch block Abnormal ECG PREVIOUS TRACING : 07/15/2017 21.55 Compared to prior tracing no significant change DOCTOR: Clint Alicia Interpretating Date/Time 07/16/2017 14:33:26
--- NOTE | 2017-07-16 14:49 | EKG ---
Date Performed: 07/15/2017 Time Performed: 21:55:33 PTAGE: 76 years EKG: SINUS BRADYCARDIA WITH FIRST DEGREE AV BLOCK LEFT BUNDLE BRANCH BLOCK ABNORMAL ECG PREVIOUS TRACING : 07/15/2017 15.07 Compared to prior tracing no significant change DOCTOR: Clint Alicia Interpretating Date/Time 07/16/2017 14:47:54
--- NOTE | 2017-07-16 15:28 | EKG ---
Date Performed: 07/15/2017 Time Performed: 15:07:26 PTAGE: 76 years EKG: SINUS BRADYCARDIA WITH FIRST DEGREE AV BLOCK LEFT BUNDLE BRANCH BLOCK ABNORMAL ECG INTERPRE TATION BASED ON A DEFAULT AGE OF 40 YEARS NO PREVIOUS TRACING Compared to the previous tracing, first degree AVB and LBBB are new DOCTOR: Clint Alicia Interpretating Date/Time 07/16/2017 15:27:47
[2017-07-16] MEDS: ATORVASTATIN 40 MG TAB PO SCH (21:15)
[2017-07-17] VITALS: BP 162/74; PULSE 50; RESP 21; TEMP 98; O2SAT 97
[2017-07-17] MEDS: CHLORHEXIDINE GLUCONATE 2 % 1 PACK (2 CLOTHS) TOP SCH (00:27)
[2017-07-17 04:00] VITALS: BP 117/58; PULSE 48; RESP 22; TEMP 97.9; O2SAT 97
[2017-07-17] MEDS: HEPARIN SODIUM - SQ 10,000 UNITS/ML VIAL SQ SCH ×3 (06:22→20:21)
[2017-07-17 08:00] VITALS: BP 130/65; PULSE 43; PULSE 50; RESP 20; TEMP 98.2; O2SAT 96
[2017-07-17] MEDS: DOCUSATE SODIUM 50 MG/SENNA 8.6 MG TAB PO SCH ×2 (08:13→20:20)
[2017-07-17] MEDS: ASPIRIN 81 MG CHEW TAB CHEW SCH (08:13)
[2017-07-17] MEDS: SODIUM CHLORIDE 0.9% FLUSH 10 ML FLUSH IV FLUSH SCH ×2 (08:14→20:21)
[2017-07-17 12:00] VITALS: BP 132/69; PULSE 50; RESP 20; TEMP 98.3; O2SAT 96
--- NOTE | 2017-07-17 13:40 | PD.CARD.PN ---
Subjective Subjective Remarks No events overnight Patient sitting at the side of his bed with no complaints Telemetry showing sinus bradycardia mostly 48-52 bpm Objective Medications Current Medications Medications (Trade) Dose Ordered Sig/Cody Route Start Time Stop Time Status Last Admin (NS Flush) 2 ml UNSCH PRN IVF 07/15/17 15:15 07/15/17 15:14 (Aspirin Chew) 81 mg DAILY CHEW 07/16/17 09:00 07/17/17 08:13 (Lipitor) 40 mg HS PO 07/16/17 21:00 07/16/17 21:15 (Apresoline Inj) 20 mg Q4H PRN IV PUSH 07/15/17 21:15 (NS Flush) 2 ml UNSCH PRN IV FLUSH 07/15/17 21:15 (NS Flush) 2 ml BID IV FLUSH 07/16/17 09:00 07/17/17 08:14 (Tylenol) 650 mg Q6H PRN PO 07/15/17 21:15 (Zofran Inj) 4 mg Q6H PRN IV PUSH 07/15/17 21:15 (Ambien) 5 mg HS PRN PO 07/15/17 21:15 (Duoneb Neb) 1 ampule Q2HR NEB PRN INH 07/15/17 21:15 (Heparin Inj) 5,000 units Q8H SQ 07/15/17 22:00 07/17/17 06:22 Miscellaneous Information 1 Q361D XX 07/15/17 21:15 07/16/17 04:00 (Chlorhexidine 2% Cloth) 3 pack Taper DAILY@04 TOP 07/16/17 04:00 07/12/18 03:59 07/16/17 04:00 (Chlorhexidine 2% Cloth) 3 pack UNSCH PRN TOP 07/15/17 21:15 (Kendra-Colace) 1 tab BID PO 07/16/17 09:00 07/17/17 08:13 (Milk Of Magnesia Liq) 30 ml Q12H PRN PO 07/15/17 21:15 (Senokot) 17.2 mg Q12H PRN PO 07/15/17 21:15 (Dulcolax Supp) 10 mg DAILY PRN RECTAL 07/15/17 21:15 (Lactulose Liq) 30 ml DAILY PRN PO 07/15/17 21:15 Vital Signs / I&O Vital Signs Date Time Temp Pulse Resp B/P (MAP) Pulse Ox O2 Delivery O2 Flow Rate FiO2 07/17/17 12:00 98.3 50 20 132/69 (90) 96 07/17/17 08:00 98.2 50 20 130/65 (86) 96 07/17/17 04:00 97.9 48 22 117/58 (77) 97 07/17/17 00:00 98.0 50 21 162/74 (103) 97 07/16/17 20:00 Room Air 07/16/17 20:00 41 07/16/17 20:00 97.8 46 19 134/63 (86) 95 07/16/17 17:30 97.6 44 20 160/73 (102) 96 07/16/17 17:14 43 07/16/17 14:00 47 I/O 07/16/17 07/16/17 07/16/17 07/17/17 07/17/17 07/17/17 07:00 15:00 23:00 07:00 15:00 23:00 Intake Total 912 ml 319 ml 480 ml Output Total 2300 ml 1100 ml 200 ml Balance -1388 ml 319 ml -620 ml -200 ml Intake Oral 240 ml 480 ml IV Total 672 ml 319 ml Output Urine Total 2300 ml 1100 ml 200 ml # Bowel Movements 0 1 Physical Exam GENERAL: NAD, AAOx3 SKIN: Warm and dry. HEAD: Atraumatic. Normocephalic. EYES: Pupils equal and round. No scleral icterus. No injection or drainage. ENT: No nasal bleeding or discharge. Mucous membranes pink and moist. NECK: Trachea midline. No JVD. CARDIOVASCULAR: Regular rhythm, bradycardic RESPIRATORY: No accessory muscle use. Clear to auscultation. Breath sounds equal bilaterally. GASTROINTESTINAL: Abdomen soft, non-tender, nondistended. Hepatic and splenic margins not palpable. MUSCULOSKELETAL: Extremities without clubbing, cyanosis, or edema. No obvious deformities. NEUROLOGICAL: Awake and alert. No obvious cranial nerve deficits. Motor grossly within normal limits. Five out of 5 muscle strength in the arms and legs. Normal speech. PSYCHIATRIC: Appropriate mood and affect; insight and judgment normal. Assessment and Plan Problem List: (1) Bradycardia ICD Codes: R00.1 - Bradycardia, unspecified Status: Acute (2) Hx of CABG ICD Codes: Z95.1 - Presence of aortocoronary bypass graft (3) CAD (coronary artery disease) ICD Codes: I25.10 - Atherosclerotic heart disease of [place] coronary artery without angina pectoris (4) HOCM (hypertrophic obstructive cardiomyopathy) ICD Codes: I42.1 - Obstructive hypertrophic cardiomyopathy (5) H/O myomectomy ICD Codes: Z98.890 - Other specified postprocedural states (6) LBBB (left bundle branch block) ICD Codes: I44.7 - Left bundle-branch block, unspecified (7) First degree AV block ICD Codes: I44.0 - Atrioventricular block, first degree Assessment and Plan 1) Bradycardia while on BB/Amio BB and Amio stopped Heart rates now in the low 50s May take >30 days for Amio to be out of his system 2) No high risk AV blocks noted on telemetry 3) Echo pending 4) Will plan to keep in the hospital until tomorrow for stability Clint Alicia DO Jul 17, 2017 13:40
--- NOTE | 2017-07-17 13:41 | HHI.DCPOC ---
Discharge Care Plan Diagnosis: (1) Bradycardia (2) Hx of CABG (3) LBBB (left bundle branch block) (4) CAD (coronary artery disease) Goals to Promote Your Health * To prevent worsening of your condition and complications * To maintain your health at the optimal level Directions to Meet Your Goals Take your medications as prescribed Follow your dietary instruction Follow activity as directed Keep your appointments as scheduled Take your immunizations and boosters as scheduled If your symptoms worsen call your PCP, if no PCP go to Urgent Care Center or Emergency Room Smoking is Dangerous to Your Health. Avoid second hand smoke Call the 24-hour hour crisis hotline for domestic abuse at Carlos Eduardo Mcnair DO Jul 17, 2017 13:40
--- NOTE | 2017-07-17 13:52 | HHI.PR ---
Subjective Remarks The patient very much wanted to go home today. He said he was feeling well. He said he has a cardiology appointment tomorrow at noon. He does not want to stay in the hospital another night. Discussed with family and nursing. Objective Vitals Vital Signs Date Time Temp Pulse Resp B/P (MAP) Pulse Ox O2 Delivery O2 Flow Rate FiO2 07/17/17 12:00 98.3 50 20 132/69 (90) 96 07/17/17 08:00 98.2 50 20 130/65 (86) 96 07/17/17 04:00 97.9 48 22 117/58 (77) 97 07/17/17 00:00 98.0 50 21 162/74 (103) 97 07/16/17 20:00 Room Air 07/16/17 20:00 41 07/16/17 20:00 97.8 46 19 134/63 (86) 95 07/16/17 17:30 97.6 44 20 160/73 (102) 96 07/16/17 17:14 43 07/16/17 14:00 47 I/O 07/16/17 07/16/17 07/16/17 07/17/17 07/17/17 07/17/17 07:00 15:00 23:00 07:00 15:00 23:00 Intake Total 912 ml 319 ml 480 ml Output Total 2300 ml 1100 ml 200 ml Balance -1388 ml 319 ml -620 ml -200 ml Intake Oral 240 ml 480 ml IV Total 672 ml 319 ml Output Urine Total 2300 ml 1100 ml 200 ml # Bowel Movements 0 1 Result Diagram: 07/16/17 0351 07/16/17 0351 Imaging Last Impressions Chest X-Ray 07/15/17 1501 Signed Impressions: Service Date/Time: Sunday, July 16, 2017 03:10 - CONCLUSION: Normal examination. Clips and wires suggest CABG. Shelton Martinez MD Objective Remarks GENERAL: Well-nourished, well-developed patient sitting up in bed in no acute distress. SKIN: Warm and dry. HEAD: Normocephalic. EYES: No scleral icterus. No injection or drainage. NECK: Supple, trachea midline. No JVD or lymphadenopathy. CARDIOVASCULAR: Bradycardic. RESPIRATORY: Breath sounds equal bilaterally. No accessory muscle use. GASTROINTESTINAL: Abdomen soft, non-tender, nondistended. MUSCULOSKELETAL: No cyanosis, or edema. BACK: Nontender without obvious deformity. NEURO: No gross deficits. PSYCH: Mood and affect appropriate. Medications and IVs Current Medications Medications (Trade) Dose Ordered Sig/Cody Route Start Time Stop Time Status Last Admin (NS Flush) 2 ml UNSCH PRN IVF 07/15/17 15:15 07/15/17 15:14 (Aspirin Chew) 81 mg DAILY CHEW 07/16/17 09:00 07/17/17 08:13 (Lipitor) 40 mg HS PO 07/16/17 21:00 07/16/17 21:15 (Apresoline Inj) 20 mg Q4H PRN IV PUSH 07/15/17 21:15 (NS Flush) 2 ml UNSCH PRN IV FLUSH 07/15/17 21:15 (NS Flush) 2 ml BID IV FLUSH 07/16/17 09:00 07/17/17 08:14 (Tylenol) 650 mg Q6H PRN PO 07/15/17 21:15 (Zofran Inj) 4 mg Q6H PRN IV PUSH 07/15/17 21:15 (Ambien) 5 mg HS PRN PO 07/15/17 21:15 (Duoneb Neb) 1 ampule Q2HR NEB PRN INH 07/15/17 21:15 (Heparin Inj) 5,000 units Q8H SQ 07/15/17 22:00 07/17/17 06:22 Miscellaneous Information 1 Q361D XX 07/15/17 21:15 07/16/17 04:00 (Chlorhexidine 2% Cloth) 3 pack Taper DAILY@04 TOP 07/16/17 04:00 07/12/18 03:59 07/16/17 04:00 (Chlorhexidine 2% Cloth) 3 pack UNSCH PRN TOP 07/15/17 21:15 (Kendra-Colace) 1 tab BID PO 07/16/17 09:00 07/17/17 08:13 (Milk Of Magnesia Liq) 30 ml Q12H PRN PO 07/15/17 21:15 (Senokot) 17.2 mg Q12H PRN PO 07/15/17 21:15 (Dulcolax Supp) 10 mg DAILY PRN RECTAL 07/15/17 21:15 (Lactulose Liq) 30 ml DAILY PRN PO 07/15/17 21:15 A/P Assessment and Plan Bradycardia S/t AV katty blockers. Cardiology consult appreciated. HR currently ranges from 30s to 50s. - Hold metoprolol and amiodarone. - Telemetry. - awaiting cardiology clearance for discharge. Hypotension Due to above. Resolved. - holding metoprolol and amiodarone. Altered mental status with dizziness S/t above. Seems resolved. - treatment as above. Cardiomyopathy Cardiology consult appreciated. - echo pending. - continue ASA and statin. Renal insufficiency Creatinine improved. - avoid nephrotoxic agents. PPx: Heparin Discharge Planning D/c when cleared by cardiology Carlos Eduardo Mcnair DO Jul 17, 2017 13:52
[2017-07-17 16:00] VITALS: BP 170/74; PULSE 47; RESP 20; TEMP 97.6; O2SAT 96
--- NOTE | 2017-07-17 17:48 | ECHRPT ---
Indication: nancy CONCLUSIONS The left ventricular systolic function is normal with an estimated ejection fraction in the range of 55-60%. Normal left ventricular size. severe mitral valve regurgitation. Mild to moderate aortic valve regurgitation. There is moderate tricuspid valve regurgitation. The estimated pulmonary arterial pressure is 58.2 mmHg. BP: / HR: Rhythm: MEASUREMENTS (Male / Female) Normal Values Technical Quality:Good 2D ECHO LV Diastolic Diameter PLAX 3.5 cm 4.2 - 5.9 / 3.9 - 5.3 cm LV Systolic Diameter PLAX 2.6 cm IVS Diastolic Thickness 1.8 cm 0.6 - 1.0 / 0.6 - 0.9 cm LVPW Diastolic Thickness 1.4 cm 0.6 - 1.0 / 0.6 - 0.9 cm LV Relative Wall Thickness 0.9 RV Internal Dim ED PLAX 3.0 cm M-MODE Aortic Root Diameter MM 4.5 cm LA Systolic Diameter MM 3.9 cm LA Ao Ratio MM 0.9 AV Cusp Separation MM 2.6 cm DOPPLER AV Peak Velocity 229.0 cm/s AV Peak Gradient 21.0 mmHg AV Mean Gradient 10.0 mmHg AV Velocity Time Integral 52.5 cm LV E' Lateral Velocity 6.3 cm/s LV E' Septal Velocity 15.1 cm/s TR Peak Velocity 347.0 cm/s TR Peak Gradient 48.2 mmHg Right Atrial Pressure 10.0 mmHg Pulmonary Artery Systolic Pressu 58.2 mmHg Right Ventricular Systolic Press 58.2 mmHg FINDINGS LEFT VENTRICLE The left ventricular systolic function is normal with an estimated ejection fraction in the range of 55-60%. Normal left ventricular size. RIGHT VENTRICLE Normal right ventricular size and systolic function. LEFT ATRIUM The left atrial size is normal. RIGHT ATRIUM The right atrial size is normal. ATRIAL SEPTUM Normal atrial septal thickness without atrial level shunting by limited color doppler interrogation. AORTA The aortic root and proximal ascending aorta are normal in size on limited imaging. MITRAL VALVE Navk-ar-spumlyac mitral valve regurgitation. Structurally normal mitral valve. AORTIC VALVE Trileaflet aortic valve. Mild aortic valve regurgitation. TRICUSPID VALVE Structurally normal tricuspid valve. There is mild tricuspid valve regurgitation. The estimated pulmonary arterial pressure is 58.2 mmHg. PULMONARY VALVE No pulmonary valve regurgitation or stenosis. VESSELS The inferior vena cava is normal in size. PERICARDIUM No pericardial effusion. Isac Singh MD, FACC, [facility] (Electronically Signed) Final Date:17 July 2017 17:47
[2017-07-17 20:00] VITALS: BP 131/67; PULSE 53; PULSE 55; RESP 20; TEMP 97.7; O2SAT 94
[2017-07-17] MEDS: ATORVASTATIN 40 MG TAB PO SCH (20:20)
[2017-07-18] VITALS: BP 136/61; PULSE 61; RESP 19; TEMP 97.7; O2SAT 96
[2017-07-18 04:00] VITALS: BP 144/63; PULSE 58; RESP 19; TEMP 98.3; O2SAT 97
[2017-07-18] MEDS: CHLORHEXIDINE GLUCONATE 2 % 1 PACK (2 CLOTHS) TOP SCH (04:00)
[2017-07-18] MEDS: HEPARIN SODIUM - SQ 10,000 UNITS/ML VIAL SQ SCH (06:19)
[2017-07-18 08:00] VITALS: BP 141/65; PULSE 52; RESP 20; TEMP 97.6; O2SAT 98
[2017-07-18 08:02] LABS: BASOPHIL % 0.8 % (0.0-2.0); EOSINOPHIL # 0.1 TH/MM3 (0-0.4); EOSINOPHIL % 2.1 % (0.0-4.0); HEMATOCRIT 42.5 % (39.0-51.0); HEMO FLAGS DIFF FINAL; LYMPH % 20.9 % (9.0-44.0); LYMPHOCYTE # 1.3 TH/MM3 (1.0-4.8); MEAN CELL VOLUME 90.9 FL (80.0-100.0); MEAN CORPUSCULAR HEMOGLOBIN 31.1 PG (27.0-34.0); MEAN CORPUSCULAR HGB CONC 34.3 % (32.0-36.0); MONO % 8.9 % (0.0-8.0); NEUT % 67.3 % (16.0-70.0); PLATELET COUNT 152 TH/MM3 (150-450); RED BLOOD COUNT 4.68 MIL/MM3 (4.50-5.90); RED CELL DISTRIBUTION WIDTH 16.1 % (11.6-17.2)
[2017-07-18 08:23] LABS: BICARBONATE 27.7 MEQ/L (21.0-32.0); POTASSIUM 4.6 MEQ/L (3.5-5.1)
[2017-07-18] MEDS ORDERED: HEPARIN-NS/PF INJ 1,500 ML ONE (08:36)
[2017-07-18] MEDS ORDERED: MIDAZOLAM HCL 2 MG/2 ML VIAL ONE (08:48)
[2017-07-18] MEDS: DOCUSATE SODIUM 50 MG/SENNA 8.6 MG TAB PO SCH ×2 (09:00→20:58)
[2017-07-18] MEDS: ASPIRIN 81 MG CHEW TAB CHEW SCH (09:00)
[2017-07-18] MEDS: SODIUM CHLORIDE 0.9% FLUSH 10 ML FLUSH IV FLUSH SCH ×2 (09:00→20:57)
[2017-07-18] MEDS ORDERED: HEPARIN SODIUM - IV 10,000 UNITS/10 ML VIAL ONE (09:30)
[2017-07-18] MEDS ORDERED: ATROPINE SULFATE 1 MG/ML VIAL IV PUSH PRN (10:15)
[2017-07-18] MEDS ORDERED: MISC INFORMATION XX ONE (10:15)
--- NOTE | 2017-07-18 10:15 | CATHPROC ---
[employer] HIS Report Study Information Study Number Admission Scheduled Start Study Start [id number] Jul 15 2017 3:47PM 07/17/2017 Jul 18 2017 8:34AM [place] [facility] Cardiac Catheterization Admit Source Facility Department Emergency department [facility] - Appeals Writer Physician and Clinical Staff Initial Clint Lehman Security Guard Supervisor Jaimie Rosenbaum BSN Security Guard Supervisor Roman Hobbs RN Recorder Jessica Blanco RCIS TECH2 Scrub Jose Sparrow RCIS(BS) Procedures Performed Procedure Location (Site) Vessel Name Coronary Angiograms LCA Left Coronary Coronary Angiograms RCA Right Coronary Coronary Angiograms PEDRO-LAD Left Coronary Coronary Angiograms SVG-OM CIRC Wire insertion Fem Art (right) Femoral Art Equipment Time As400 Programmer Analyst Description Size Mfg Part Number Used/Scraped TRANSDUCER, TRUWAVE [id number] 08:39 ALLEN DURBIN * Used W/CHRISTINA *[id number] INTRODUCER SET, 08:57 [employer] FR 5 [id number] *[id number] Used MICROPUNCTURE, STIFFENED [id number] *[id number] *[id number] WIRE, HYDROSTEER 150CM [id number] 09:00 DAIG/[employer] 150CM Used ANGLED GLIDE *[id number] 08:39 [employer] INDUSTRIES PACK, CCL CUSTOM * Used *[id number] 09:15 MEDTRONIC JL 4.0 DXTERITY CATHETER FR 5 [id number] Used [id number] 09:30 MEDTRONIC/AVE EBU 3.5 Z2 GUIDE CATHETER FR 6 Used *[id number] 08:39 [employer] MEDICAL SHEATH, FR5.5 PRELUDE 11CM FR 5 [id number] Used [id number] 09:30 [employer] MEDICAL SHEATH, FR6.5 PRELUDE 11CM FR 6.5 [id number] Used *[id number] 08:39 [employer] MEDICAL WIRE, 3MMJ .035 180CM 180CM Used *[id number] 08:39 NAMIC MANIFOLD, 4 PORT * Used *[id number] 08:39 NYCOMED OMNIPAQUE, 350 MG, 150ML 150ML [id number] Used [id number] 08:39 MALIK MEDICAL BLANKET,WARM AIR CCL * Used *[id number] 09:32 [employer] PRIME WIRE, VERRATA 185CM 185CM 02940 *[id number] Used Equipment Model, Serial, Lot Number and Expiration Data Description Model Number Serial Number Lot Number Expiration Date JL 4.0 DXTERITY CATHETER [id number] 05-10-2020 PRIME WIRE, VERRATA 185CM [id number] 05-21-2020 WIRE, HYDROSTEER 150CM [id number] 03-21-2020 ANGLED GLIDE History: Current Medications Medication Dosage/Unit Route Frequency Last Date/Time Taken LOPRESSOR NORVASC ASA LIPITOR HYDRALAZINE History: Allergies Allergy Reaction No Known Allergies History: Risk Factors Family History of Hypertension Dyslipidemia Previous [place] Previous Heart Failure Premature CAD Yes Yes No No No Prior Valve Prior PCI Prior CABG Prior CABGDate Surgery No No Yes 08/22/2015 Cerebrovascular Peripheral Artery Chronic Lung On Dialysis Diabetes Disease Disease Disease No No Yes No No History: Symptoms/Diagnosis Selection Items Chest pain Syncope History: CV Disease Selection Items Cardiomyopathy hypertrophic History: Stress Tests Stress or Imaging Studies Performed Yes Standard Exercise Stress Test No Stress Echo No Stress Test SPECT Stress Test SPECT Result Stress Test SPECT Ischemia Risk/Extent Yes Positive Intermediate Stress Test CMR No Cardiac CTA Coronary Calcium Score No No History: Other Disease Selection Items Renal Failure/Insufficiency History: Other Current Smoker Method Packs a Day Years Used Pack Years Yes Cigarettes 1 63 63 Labs Hgb (g/dl) Hct (%) WBC (l/cumm) Platelets (thousands) 11.60-17.00 35.00-51.00 4.00-11.00 150.00-450.00 13.9 40.5 6.6 139 Glucose (mg/dl) BUN (mg/dl) Creatinine (mg/dl) BUN:Creatinine (1:x) 74.00-106.00 7.00-18.00 0.50-1.30 10.00-20.00 75 27 1.3 20.8 Na (meq/l) K (meq/l) 136.00-145.00 3.50-5.10 140 4.1 Troponin I (ng/ml) CPK (u/l) CPK-MB (ng/ML) 0.02-0.05 26.00-308.00 0.50-3.60 0.02 61 Not Drawn Medication Medication Total Dose (Bolus/Oral) Medication Total Dosage/Unit 1% XYLOCAINE 20 mL FENTANYL 25 mcg HEPARIN 4100 units VERSED 0.5 mg Medications (Bolus/Oral) Medication Time Given Dosage/Unit Administered By Reason VERSED 07/18/2017 8:54:10 AM 0.5 mg Roman Hobbs 0.5 mg VERSED given in lab by Roman Hobbs RN in Left Antecubital via Peripheral IV. Ordered by Clint Lance 1% XYLOCAINE 07/18/2017 8:55:30 AM 20 mL Clint Alicia 20 mL 1% XYLOCAINE given in lab by Clint Alicia in Right Groin via Subcutaneous. Ordered by Clint Lance HEPARIN 07/18/2017 9:35:37 AM 4100 units Roman Hobbs 4100 units HEPARIN given in lab by Roman Hobbs RN in Left Antecubital via Peripheral IV. Ordered by Clint Alicia 07/18/2017 10:54:29 FENTANYL 25 mcg Roman Hobbs AM 25 mcg FENTANYL given in lab by Roman Hobbs RN in Right Antecubital via Peripheral IV. Ordered by Clint Alicia Medication (Drip) Medication Time Given Dosage/Unit Concentration/Unit Diluent (ml) Solution IV Solutions 07/18/2017 8:39:23 AM 0 mL (IV) 500 NaCl .9 Patient arrived on IV Solutions in Left Antecubital via Peripheral IV. Pump/Drip Flow = 20 ml/hr usin g NaCl .9. Initial Case Assessment Cardiovascular HR Rhythm NIBP Chest Pain 48 sb 164/77 0 Circulatory - Right Pulses Dorsalis Pedis Femoral 2 2 Scale (0,1,2,3,4,d) Circulatory - Left Pulses Dorsalis Pedis Femoral 2 2 Scale (0,1,2,3,4,d) Neurological State Oriented to time-place- Alert Moves all extremities person Respiration - General Respiration Rate SpO2 (%) (B/min) 13 98 Final Case Assessment Cardiovascular HR Rhythm NIBP Chest Pain 45 sb 163/69 0 Circulatory - Right Pulses Dorsalis Pedis Femoral 2 2 Scale (0,1,2,3,4,d) Circulatory - Left Pulses Dorsalis Pedis Femoral 2 2 Scale (0,1,2,3,4,d) Neurological State Oriented to time-place- Alert Moves all extremities person Respiration - General Respiration Rate SpO2 (%) (B/min) 16 96 Chronological Log Time Study Chronological Log 8:33:00 Patient arrived via Bed. 8:33:04 Patient Name, D.O.B, / Armband Verified By R.N. 8:34:10 Consent signed by the physician and the patient and verified by the Appeals Writer staff. 8:34:11 Pre-op and post- op instructions given; patient acknowledges understanding of instructions. 8:34:17 Verbal Stimulation=2 Physical Stimulation=2 Airway=2 Respiration=2 TOTAL=8. (0=absent, 1=chand ited, 2=present) 8:34:19 Presedation assessment performed by Appeals Writer RN. 8:34:21 Patient has been NPO for More than 6Hrs. 8:34:22 Skin Breakdown-none 8:35:58 Reference ECG taken Vitals capture started with the following parameters, Patient=Adult, Interval=5 min, Initial Pre tpubz=575 mmHg, 8:37:33 Deflation Rate=5 mmHg, Cuff placed on Left Arm 8:38:09 HR=47 bpm, CXME=790/77 mmhg, SpO2=98.0 %, Resp=13 B/min, Pain=0, Smith=2 8:39:19 Bereket Prominences Protected 8:39:22 A # 20 IV was noted in the Antecubital (right). Grade = patent 8:39:23 Patient arrived on IV Solutions in Left Antecubital via Peripheral IV. Pump/Drip Flow = 20 m l/hr using NaCl .9. 8:39:26 History and physical on the chart or being dictated. Assessment: Initial Case, HR=48 BPM, Rhythm=sb, EWSB=293/77 mmhg, Chest Pain=0 Right Pulses: Bryant Ped=2, Femoral=2 8:39:27 Left Pulses: Bryant Ped=2, Femoral=2 Neurological: State=Alert, Ox3, MOSLEY Respiration: Resp=13 B/min, SpO2=98 % 8:40:53 Bilateral groins prepped with 2% chlorhexidine, and draped after a 3 minute waiting time. 8:44:01 HR=47 bpm, IYFQ=886/73 mmhg, SpO2=96.0 %, Resp=11 B/min 8:47:36 Pressure channel 1 zeroed. 8:48:13 HR=48 bpm, PWQC=363/71 mmhg, SpO2=97.0 %, Resp=12 B/min, Pain=0, Smith=2 8:48:37 MD arrived. 8:53:16 HR=64 bpm, HNCO=205/64 mmhg, SpO2=97.0 %, Resp=12 B/min, Pain=0, Smith=2 Time Out. Correct patient, correct procedure, correct physician, power injector loaded, or not l oaded with contrast with 8:54:09 surgical team present. Time Out Concurred by MD and individual staff in procedure. 8:54:10 0.5 mg VERSED given in lab by Roman Hobbs RN in Left Antecubital via Peripheral IV. Orde red by Clint Alicia. 8:55:29 Case Start 20 mL 1% XYLOCAINE given in lab by Clint Alicia in Right Groin via Subcutaneous. Ordered by Ravin 8:55:30 Clint Boykin 8:56:51 Access site was Right Femoral Artery. A INTRODUCER SET, MICROPUNCTURE, STIFFENED FR 5 was advanced into the Fem Art (right) using the 8:56:58 Percutaneous technique. A SHEATH, FR5.5 PRELUDE 11CM FR 5 was exchanged in the Fem Art (right). This was necessary in or vandana to 8:57:28 accomodate a larger catheter. Recorded Pressure: FA, HR=49, Condition=Condition 1 8:58:09 (Femoral Artery) FA 149/56/91 8:58:13 HR=49 bpm, VWLG=990/76 mmhg, SpO2=95.0 %, Resp=16 B/min, Pain=0, Smith=2 8:58:23 An injection in the Fem Art (right) was made through the SHEATH, FR5.5 PRELUDE 11CM FR 5. A JR 4.0 INFINITI CATHETER FR 5 was advanced over a wire. OMNIPAQUE, 350 MG, 150ML 150ML was use d for 9:01:08 injections. 9:02:11 The previous wire was exchanged for a WIRE, HYDROSTEER 150CM ANGLED GLIDE 150CM. 9:03:18 HR=70 bpm, YYRQ=943/55 mmhg, SpO2=96.0 %, Resp=19 B/min Recorded Pressure: LV, HR=50, Condition=Condition 1 9:03:48 (Left Ventricle) LV 191/2/13 Recorded Pressure: LV, Ao, HR=41, Condition=Condition 1 9:04:04 (Left Ventricle) LV 239/2/0, (Aorta) Ao 131/51/82 Recorded Pressure: Ao, HR=49, Condition=Condition 1 9:04:32 (Aorta) Ao 121/54/80 9:04:45 The RCA was injected and visualized at various angles. OMNIPAQUE, 350 MG, 150ML 150ML used. 9:08:44 HR=49 bpm, MEXC=086/72 mmhg, SpO2=97.0 %, Resp=14 B/min, Pain=0, Smith=2 9:13:14 HR=49 bpm, NSDI=873/71 mmhg, SpO2=95.0 %, Resp=15 B/min Recorded Pressure: Ao, HR=50, Condition=Condition 1 9:13:47 (Aorta) Ao 158/58/93 9:14:39 The PEDRO-LAD was injected and visualized at various angles. OMNIPAQUE, 350 MG, 150ML 150ML u sed. After removing the current catheter a JL 4.0 DXTERITY CATHETER FR 5 was advanced over a WIRE, 3M MJ .035 180CM 9:15:32 180CM. 9:17:42 The LCA was injected and visualized at various angles. OMNIPAQUE, 350 MG, 150ML 150ML used. 9:18:58 HR=46 bpm, DKTE=031/68 mmhg, SpO2=94.0 %, Resp=16 B/min, Pain=0, Smith=2 After removing the current catheter a AL 1 INFINITI CATHETER FR 5 was advanced over a WIRE, 3MMJ .035 180CM 9:21:22 180CM. The SVG-Sequential to OM and PDA was injected and visualized at various angles. OMNIPAQUE, 350 M G, 150ML 9:23:20 150ML used. 9:23:45 HR=46 bpm, NAXP=136/66 mmhg, SpO2=95.0 %, Resp=13 B/min 9:28:16 HR=46 bpm, DSVT=993/74 mmhg, SpO2=97.0 %, Resp=12 B/min After removing the current catheter a EBU 3.5 Z2 GUIDE CATHETER FR 6 was advanced over a WIRE, 3 MMJ .035 9:31:19 180CM 180CM. 9:33:19 HR=45 bpm, TANN=407/70 mmhg, SpO2=96.0 %, Resp=15 B/min 4100 units HEPARIN given in lab by Roman Hobbs, RN in Left Antecubital via Peripheral IV. Ord ered by Clint Alicia 9:35:37 G. 9:38:46 HR=45 bpm, UPBB=763/71 mmhg, SpO2=97.0 %, Resp=15 B/min 9:40:59 Pressure channel 1 zeroed. 9:42:50 A PRIME WIRE, VERRATA 185CM 185CM was inserted via Fem Art (right). 9:43:19 HR=44 bpm, YMUV=639/71 mmhg, SpO2=96.0 %, Resp=17 B/min 9:43:41 Flow Wire was was placed in the CIRC Mid. The IFR measures 1 Percent. 9:46:53 The PRIME WIRE, VERRATA 185CM 185CM was removed. 9:47:30 Catheter was removed over wire 9:48:20 HR=45 bpm, YJQB=789/69 mmhg, SpO2=96.0 %, Resp=16 B/min, Pain=0, Smith=2 9:48:44 Activated Clotting Time Drawn 9:48:50 Case End 9:53:00 In the Fem Art (right) the sheath was sutured in place by Jose Sparrow RCIS(BS). 9:54:06 JPKK=409/76 mmhg, SpO2=97.0 % 9:54:09 Sterile dressing applied to site 9:54:43 ACT (Normal Range 90-180) = 269 Assessment: Final Case, HR=45 BPM, Rhythm=sb, INUL=396/69 mmhg, Chest Pain=0 Right Pulses: Bryant Ped=2, Femoral=2 9:54:57 Left Pulses: Bryant Ped=2, Femoral=2 Neurological: State=Alert, Ox3, MOSLEY Respiration: Resp=16 B/min, SpO2=96 % 9:55:21 Vitals capture stopped. 9:58:08 No case complications noted. 9:58:09 Cine recording checked. 9:58:10 Bedside Report will be given. 9:58:16 Patient moved to bed 9:58:34 Patient transported to DOCU 25 mcg FENTANYL given in lab by Roman Hobbs, GERI in Right Antecubital via Peripheral IV. Ord ered by Clint Alicia 10:54:29 G. End Study - Contrast Media Used In Study Contrast Total Opened (mL) Total Used (mL) Total Wasted (mL) Omnipaque 150 150 0 End Study - Maximum Contrast Load Max Contrast Load (mL) 224.7 End Study - Radiation Exposure Fluoro Time (minutes) 16.3 End Study - Patient Disposition Complications Transferred To Interventional Outcome No Telemetry Bed No attempt made
[2017-07-18] MEDS ORDERED: IOHEXOL 350 MG/ML 50 ML BTL (for Cath Lab) OTHER ONE (11:03)
[2017-07-18] MEDS ORDERED: IOHEXOL 350 MG/ML 100 ML BTL (for Cath Lab) OTHER ONE (11:03)
[2017-07-18 16:00] VITALS: BP 158/71; PULSE 58; RESP 20; TEMP 97.8; O2SAT 97
--- NOTE | 2017-07-18 16:03 | HHI.PR ---
Subjective Remarks The pt was seen following cardiac catheterization. He was feeling fine. He had no new complaints. Discussed with nursing and cardiology. Objective Vitals Vital Signs Date Time Temp Pulse Resp B/P (MAP) Pulse Ox O2 Delivery O2 Flow Rate FiO2 07/18/17 12:51 98 Room Air 07/18/17 11:12 98 Room Air 07/18/17 08:12 Room Air 07/18/17 08:00 97.6 52 20 141/65 (90) 98 07/18/17 04:00 98.3 58 19 144/63 (90) 97 07/18/17 00:00 Room Air 07/18/17 00:00 97.7 61 19 136/61 (86) 96 07/17/17 20:00 97.7 55 20 131/67 (88) 94 07/17/17 20:00 53 07/17/17 20:00 Room Air 07/17/17 16:00 97.6 47 20 170/74 (106) 96 I/O 07/17/17 07/17/17 07/17/17 07/18/17 07/18/17 07/18/17 07:00 15:00 23:00 07:00 15:00 23:00 Intake Total 480 ml 720 ml 0 ml Output Total 1100 ml 200 ml 850 ml Balance -620 ml -200 ml 720 ml -850 ml Intake Oral 480 ml 720 ml 0 ml Output Urine Total 1100 ml 200 ml 850 ml # Bowel Movements 1 1 Result Diagram: 07/18/17 0715 07/18/17 0715 Imaging Last Impressions Chest X-Ray 07/15/17 1501 Signed Impressions: Service Date/Time: Sunday, July 16, 2017 03:10 - CONCLUSION: Normal examination. Clips and wires suggest CABG. Shelton Martinez MD Objective Remarks GENERAL: Well-nourished, well-developed patient sitting up in bed in no acute distress. SKIN: Warm and dry. HEAD: Normocephalic. EYES: No scleral icterus. No injection or drainage. NECK: Supple, trachea midline. No JVD or lymphadenopathy. CARDIOVASCULAR: Bradycardic. RESPIRATORY: Breath sounds equal bilaterally. No accessory muscle use. GASTROINTESTINAL: Abdomen soft, non-tender, nondistended. MUSCULOSKELETAL: No cyanosis, or edema. BACK: Nontender without obvious deformity. NEURO: No gross deficits. PSYCH: Mood and affect appropriate. Procedures Cardiac cath 07/18/17 Medications and IVs Current Medications Medications (Trade) Dose Ordered Sig/Cody Route Start Time Stop Time Status Last Admin (NS Flush) 2 ml UNSCH PRN IVF 07/15/17 15:15 07/15/17 15:14 (Aspirin Chew) 81 mg DAILY CHEW 07/16/17 09:00 07/17/17 08:13 (Lipitor) 40 mg HS PO 07/16/17 21:00 07/17/17 20:20 (Apresoline Inj) 20 mg Q4H PRN IV PUSH 07/15/17 21:15 (NS Flush) 2 ml UNSCH PRN IV FLUSH 07/15/17 21:15 (NS Flush) 2 ml BID IV FLUSH 07/16/17 09:00 07/17/17 20:21 (Tylenol) 650 mg Q6H PRN PO 07/15/17 21:15 (Zofran Inj) 4 mg Q6H PRN IV PUSH 07/15/17 21:15 (Ambien) 5 mg HS PRN PO 07/15/17 21:15 (Duoneb Neb) 1 ampule Q2HR NEB PRN INH 07/15/17 21:15 Miscellaneous Information 1 Q361D XX 07/15/17 21:15 07/16/17 04:00 (Chlorhexidine 2% Cloth) 3 pack Taper DAILY@04 TOP 07/16/17 04:00 07/12/18 03:59 07/16/17 04:00 (Chlorhexidine 2% Cloth) 3 pack UNSCH PRN TOP 07/15/17 21:15 (Kendra-Colace) 1 tab BID PO 07/16/17 09:00 07/17/17 20:20 (Milk Of Magnesia Liq) 30 ml Q12H PRN PO 07/15/17 21:15 (Senokot) 17.2 mg Q12H PRN PO 07/15/17 21:15 (Dulcolax Supp) 10 mg DAILY PRN RECTAL 07/15/17 21:15 (Lactulose Liq) 30 ml DAILY PRN PO 07/15/17 21:15 (Atropine Inj) 0.5 mg UNSCH PRN IV PUSH 07/18/17 10:15 A/P Assessment and Plan Bradycardia S/t AV katty blockers. Cardiology consult appreciated. HR currently ranges from 30s to 50s. - Hold metoprolol and amiodarone. - Telemetry. - EP consult pending. Cardiomyopathy The pt has a history of HOCM. Cardiology consult appreciated. Echo with normal EF. Cath with no acute obstructive disease. - EP consult pending. May need Biventricular pacer with AICD. - continue ASA and statin. - telemetry. Hypotension Due to above. Resolved. - holding metoprolol and amiodarone. Altered mental status with dizziness S/t above. Seems resolved. - treatment as above. Renal insufficiency Creatinine improved. - avoid nephrotoxic agents. PPx: Heparin Discharge Planning D/c when cleared by cardiology Carlos Eduardo Mcnair DO Jul 18, 2017 16:03
--- NOTE | 2017-07-18 16:05 | PD.CARD.PN ---
Subjective Subjective Remarks No events overnight Post-cath Doing well Objective Medications Current Medications Medications (Trade) Dose Ordered Sig/Cody Route Start Time Stop Time Status Last Admin (NS Flush) 2 ml UNSCH PRN IVF 07/15/17 15:15 07/15/17 15:14 (Aspirin Chew) 81 mg DAILY CHEW 07/16/17 09:00 07/17/17 08:13 (Lipitor) 40 mg HS PO 07/16/17 21:00 07/17/17 20:20 (Apresoline Inj) 20 mg Q4H PRN IV PUSH 07/15/17 21:15 (NS Flush) 2 ml UNSCH PRN IV FLUSH 07/15/17 21:15 (NS Flush) 2 ml BID IV FLUSH 07/16/17 09:00 07/17/17 20:21 (Tylenol) 650 mg Q6H PRN PO 07/15/17 21:15 (Zofran Inj) 4 mg Q6H PRN IV PUSH 07/15/17 21:15 (Ambien) 5 mg HS PRN PO 07/15/17 21:15 (Duoneb Neb) 1 ampule Q2HR NEB PRN INH 07/15/17 21:15 Miscellaneous Information 1 Q361D XX 07/15/17 21:15 07/16/17 04:00 (Chlorhexidine 2% Cloth) 3 pack Taper DAILY@04 TOP 07/16/17 04:00 07/12/18 03:59 07/16/17 04:00 (Chlorhexidine 2% Cloth) 3 pack UNSCH PRN TOP 07/15/17 21:15 (Kendra-Colace) 1 tab BID PO 07/16/17 09:00 07/17/17 20:20 (Milk Of Magnesia Liq) 30 ml Q12H PRN PO 07/15/17 21:15 (Senokot) 17.2 mg Q12H PRN PO 07/15/17 21:15 (Dulcolax Supp) 10 mg DAILY PRN RECTAL 07/15/17 21:15 (Lactulose Liq) 30 ml DAILY PRN PO 07/15/17 21:15 (Atropine Inj) 0.5 mg UNSCH PRN IV PUSH 07/18/17 10:15 Vital Signs / I&O Vital Signs Date Time Temp Pulse Resp B/P (MAP) Pulse Ox O2 Delivery O2 Flow Rate FiO2 07/18/17 12:51 98 Room Air 07/18/17 11:12 98 Room Air 07/18/17 08:12 Room Air 07/18/17 08:00 97.6 52 20 141/65 (90) 98 07/18/17 04:00 98.3 58 19 144/63 (90) 97 07/18/17 00:00 Room Air 07/18/17 00:00 97.7 61 19 136/61 (86) 96 07/17/17 20:00 97.7 55 20 131/67 (88) 94 07/17/17 20:00 53 07/17/17 20:00 Room Air 07/17/17 16:00 97.6 47 20 170/74 (106) 96 I/O 07/17/17 07/17/17 07/17/17 07/18/17 07/18/17 07/18/17 07:00 15:00 23:00 07:00 15:00 23:00 Intake Total 480 ml 720 ml 0 ml Output Total 1100 ml 200 ml 850 ml Balance -620 ml -200 ml 720 ml -850 ml Intake Oral 480 ml 720 ml 0 ml Output Urine Total 1100 ml 200 ml 850 ml # Bowel Movements 1 1 Physical Exam GENERAL: NAD, AAOx3 SKIN: Warm and dry. HEAD: Atraumatic. Normocephalic. EYES: Pupils equal and round. No scleral icterus. No injection or drainage. ENT: No nasal bleeding or discharge. Mucous membranes pink and moist. NECK: Trachea midline. No JVD. CARDIOVASCULAR: Regular rhythm, bradycardic RESPIRATORY: No accessory muscle use. Clear to auscultation. Breath sounds equal bilaterally. GASTROINTESTINAL: Abdomen soft, non-tender, nondistended. Hepatic and splenic margins not palpable. MUSCULOSKELETAL: Extremities without clubbing, cyanosis, or edema. No obvious deformities. NEUROLOGICAL: Awake and alert. No obvious cranial nerve deficits. Motor grossly within normal limits. Five out of 5 muscle strength in the arms and legs. Normal speech. PSYCHIATRIC: Appropriate mood and affect; insight and judgment normal. Laboratory Laboratory Tests Test 07/18/17 07:15 White Blood Count 6.0 TH/MM3 Red Blood Count 4.68 MIL/MM3 Hemoglobin 14.6 GM/DL Hematocrit 42.5 % Mean Corpuscular Volume 90.9 FL Mean Corpuscular Hemoglobin 31.1 PG Mean Corpuscular Hemoglobin Concent 34.3 % Red Cell Distribution Width 16.1 % Platelet Count 152 TH/MM3 Mean Platelet Volume 9.6 FL Neutrophils (%) (Auto) 67.3 % Lymphocytes (%) (Auto) 20.9 % Monocytes (%) (Auto) 8.9 % Eosinophils (%) (Auto) 2.1 % Basophils (%) (Auto) 0.8 % Neutrophils # (Auto) 4.0 TH/MM3 Lymphocytes # (Auto) 1.3 TH/MM3 Monocytes # (Auto) 0.5 TH/MM3 Eosinophils # (Auto) 0.1 TH/MM3 Basophils # (Auto) 0.0 TH/MM3 CBC Comment DIFF FINAL Differential Comment Blood Urea Nitrogen 22 MG/DL Creatinine 1.22 MG/DL Random Glucose 87 MG/DL Calcium Level 8.9 MG/DL Sodium Level 139 MEQ/L Potassium Level 4.6 MEQ/L Chloride Level 106 MEQ/L Carbon Dioxide Level 27.7 MEQ/L Anion Gap 5 MEQ/L Estimat Glomerular Filtration Rate 58 ML/MIN Assessment and Plan Problem List: (1) Bradycardia ICD Codes: R00.1 - Bradycardia, unspecified Status: Acute (2) Hx of CABG ICD Codes: Z95.1 - Presence of aortocoronary bypass graft (3) CAD (coronary artery disease) ICD Codes: I25.10 - Atherosclerotic heart disease of [place] coronary artery without angina pectoris (4) HOCM (hypertrophic obstructive cardiomyopathy) ICD Codes: I42.1 - Obstructive hypertrophic cardiomyopathy (5) H/O myomectomy ICD Codes: Z98.890 - Other specified postprocedural states (6) LBBB (left bundle branch block) ICD Codes: I44.7 - Left bundle-branch block, unspecified (7) First degree AV block ICD Codes: I44.0 - Atrioventricular block, first degree Assessment and Plan 1) Bradycardia while on BB/Amio BB and Amio stopped (concern with history of HOCM and NSVT) Heart rates now in the low 50s May take >30 days for Amio to be out of his system 2) No high risk AV blocks noted on telemetry 3) EF 55-60%, severe MR 4) Cath showing no significant disease, Hx CABGx3 (3/3 patent) HOCM grad peak to peak of 100, mean 60 5) Will plan for EP Cardio, Dr. Herring, to see him for consideration of ICD therapy/Biventricular pacing Review of records from January while at [facility]: While at [facility] for AAA open repair , had NSVT. Underwent stress testing and found to have lateral ischemia. Did not want catheterization at that time, so sent home on a Lifevest. Stopped the Lifevest after 2 months due to fernandez. Was placed on BB/Amio on discharge from [facility] due to NSVT and concern for arrhythmias especially with HOCM. Continued to have a HOCM gradient even after myomectomy (done in 2016). Clint Alicia DO Jul 18, 2017 16:05
--- NOTE | 2017-07-18 16:05 | HHI.FF ---
Face to Face Verification Diagnosis: (1) H/O myomectomy (2) Hx of CABG (3) HOCM (hypertrophic obstructive cardiomyopathy) (4) Bradycardia Physical Therapy Order: Evaluate and Treat, Improve ambulation, Strength and gait training Home Health Nursing Order: Medical education Signs/symptoms of disease process Medication education-adverse effect Wound care and dressing changes Nursing assessment with vital signs I have seen patient Jesus Guadalupe on 07/18/17. My clinical findings support the need for the requested home health care services because: Ltd mobility - disease progression Deconditioned w/ increased weakness I certify that my clinical findings support that this patient is homebound because: Unsteady gait/balance Unsafe to leave home unassisted Carlos Eduardo Mcnair DO Jul 18, 2017 16:04
--- NOTE | 2017-07-18 19:44 | MB ---
cc: BRENDEN HUNTER M.D., HANSCY M.D. HORENSTEIN,TORI De Los Santos MD DATE OF CONSULTATION 07/18/2017 Electrophysiology consult REASON FOR CONSULTATION Heart failure status post myectomy. HISTORY OF THE PRESENT ILLNESS Mr. Guadalupe is a 76-year-old gentleman previously seen by Dr. Henderson at [facility]. The patient has a history of coronary artery disease, high blood pressure, abdominal aortic aneurysm, history of ____ with previous cardiac myectomy. The gentleman was previously evaluated. He has ejection fraction in the 20s-30s. LifeVest was recommended. He wore the LifeVest for two months and started to remove it because the patient said it cost him 600 dollars a month to wear the vest. He was admitted to the emergency room due to symptomatic bradycardia. He was on amiodarone and metoprolol that was discontinued. Heart rate increased. He had a left heart catheterization by Dr. Alicia that showed nonocclusive disease. The patient had coronary artery bypass grafting times three in 2016 at [facility]. I was consulted for evaluation and management and possible device insertion. The chart was reviewed. The patient was evaluated. ALLERGIES None. SOCIAL HISTORY The gentleman denies drinking. Still smokes about 5-10 cigarettes a day. FAMILY HISTORY Noncontributory to his current medical condition. MEDICATIONS At home he was on: 1. Amiodarone 200 mg a day that was discontinued. 2. He is on Lipitor of 40 mg a day. 3. Metoprolol 25 mg twice a day. 4. Amlodipine 5 mg a day. 5. Aspirin 81 mg a day. 6. He is also on aspirin 81 milligrams daily. 7. Hydralazine. Metoprolol and amlodipine were discontinued. REVIEW OF SYSTEMS Currently he refers no chest pain. No chest discomfort. No shortness of breath. No fever. PHYSICAL EXAMINATION GENERAL: Alert, fully oriented. VITAL SIGNS: His blood pressure 141/65, pulse 52, respiratory rate 18. LUNGS: Ventilated. CARDIOVASCULAR: S1-S2, no gallop. There is a systolic ejection murmur 2-3/6. ABDOMEN: Soft. No mass. No bruit. EXTREMITIES: With no edema. Electrocardiogram shows sinus rhythm, left bundle-branch block, first-degree AV block. LABORATORY DATA Hemoglobin 14.6, white blood cell 6.0. Potassium 4.6, creatinine 1.22 coming down. INR 1.0. ASSESSMENT AND RECOMMENDATIONS Mr. Guadalupe is stable. He refers feeling better. He had a left heart catheterization done by Dr. Alicia today. That indicated no significant occlusion. There was an echocardiogram read by Dr. Hunter that was done yesterday that indicated an ejection fraction of around 55-60%. That is better than the previous one. At this point my recommendation is continue with current medical management. Okay to discontinue amlodipine and metoprolol. No need for defibrillator at this point. Ejection fraction completely recuperated. And also the patient feeling far better. The patient can be discharged home whenever it is okay with the managing team. I will see him as an outpatient if necessary. MD LISSETTE Roach/KK /6:15 PM /1:09 PM
[2017-07-18 20:00] VITALS: BP 136/67; PULSE 54; RESP 18; TEMP 98; O2SAT 96
[2017-07-18] MEDS: ATORVASTATIN 40 MG TAB PO SCH (20:57)
[2017-07-18 23:00] VITALS: PULSE 54
--- NOTE | 2017-07-18 23:38 | MA ---
cc: CLINT BERGMAN DO DATE July 18, 2017 PROCEDURE Left heart catheterization, coronary angiogram, IFR left circumflex, moderate sedation 55 minutes. PREPROCEDURE DIAGNOSIS History of nonsustained ventricular tachycardia, abnormal stress test. POSTPROCEDURE DIAGNOSIS Coronary artery disease, history of CABG x3 (3/3 grafts patent), history of HOCM status post myectomy with residual gradient (peak 100, mean 70). MEDICATIONS 1. Versed 0.5 milligrams. 2. Fentanyl 25 micrograms. 3. Heparin 4100 units. CONTRAST USED 150 cc. FLUOROSCOPY 16.3 minutes. MODERATE SEDATION 55 minutes. ESTIMATED BLOOD LOSS 10 cc. PROCEDURAL SUMMARY Jesus Guadalupe is a pleasant 76-year-old male who sees my partner, Dr. Henderson, in the office and presented to [facility] due to bradycardia. In reviewing his records, he had a history of nonsustained ventricular tachycardia and an abnormal stress test 5 months ago at [facility]. As there is concern with his previous abnormal stress test as well as the nonsustained ventricular tachycardia I felt it reasonable that we rule out ischemia as a possible cause and then have him evaluated by EP for a possible ICD due to his HOCM. The risks, benefits and alternatives were explained to him and he consented as such. He was brought to lab and prepped in the usual sterile fashion. Right femoral artery was accessed using a modified Seldinger technique and placement of a 5-Tajik sheath. This was easily aspirated and flushed. A JR-4 was advanced over a J-wire to the ascending aorta and across the aortic valve for measurement of left ventricular pressure. This was pulled back across the aortic valve showing a significant gradient of HOCM with a [id number] of 100 and mean gradient of 70 and no aortic stenosis. JR-4 was used for selective angiography of the right coronary artery as well as the PEDRO to LAD. This was exchanged out for a JL-4 which was used for selective angiography of the [place] left coronary artery system. This was exchanged out for an AL-1 which was used for selective angiography of the SVG to the third obtuse marginal as well as posterior lateral branch. As his previous stress test showed lateral ischemia and there is a moderate lesion in the left circumflex I felt that this needed to be further evaluated to prove whether this truly was ischemic and possibly a cause of his nonsustained ventricular tachycardia. An EBU 3.5 guide catheter was engaged in the left main. The patient was given heparin as an anticoagulant. [place] FFR wire was advanced into the obtuse marginal. IFR measured 1.0 showing nonsignificant stenosis. Wire was removed and final angiogram shows no disruption of the coronary vasculature. Sheath was sutured in place with a plan to remove once the ACT values were appropriate and pressure held for hemostasis. The patient left the earthmoving labourer cardiovascularly stable. FINDINGS Left main: Normal size vessel with adequate reflux and no significant disease. It bifurcates into an LAD and circumflex. LAD has an 80% lesion in the midportion with competitive flow noted distally. It gives off two diagonals with the first diagonal being relatively small and a 70% ostial lesion and the second diagonal being large with no significant disease. Left circumflex: Small to moderate size vessel with a 50% lesion at the ostial portion and a 50% lesion in the midportion. It gives off one major obtuse marginal with no significant disease, distal to this the circumflex is occluded. RCA: Normal-size vessel with 60% disease diffusely through the midportion and gives off the PDA. It appears that the posterior lateral branch appears occluded. Mid-LAD with no significant disease. Overall, the LAD is a relatively small vessel and fills both antegrade and retrograde with no significant disease noted. SVG jump graft with no significant disease. It appears to touch down first to a third obtuse marginal which fills antegrade but not retrograde. And then it touches down to a posterior lateral branch of the RCA which fills both antegrade and retrograde. LVEDP 13. Intraventricular gradient peak 100, mean 70. IMPRESSION 1. Severe coronary artery disease with a history of CABG x3 (3/3 grafts patent). 2. HOCM with a history of myectomy (2016) with residual gradient (peak 100, mean 70). 3. Previous nonsustained ventricular tachycardia. RECOMMENDATIONS 1. Mr. Gregorio will continue medical management for his current coronary artery disease. 2. I have asked Dr. Herring from EP cardiology to see him due to his HOCM and previous nonsustained ventricular tachycardia as I have removed him off his beta-emilee and amiodarone due to significant bradycardia. 3. Further recommendations based on EP cardiology evaluation. Thank you for allowing me to see Jesus Guadalupe. If there are any questions please do not hesitate to call. Clint CAPONE/SHAY /10:53 PM /11:13 PM
[2017-07-19] VITALS: BP 140/74; PULSE 57; RESP 16; TEMP 98.1; O2SAT 95
[2017-07-19 04:00] VITALS: BP 137/74; PULSE 60; RESP 18; TEMP 97.8; O2SAT 95
[2017-07-19] MEDS: CHLORHEXIDINE GLUCONATE 2 % 1 PACK (2 CLOTHS) TOP SCH (04:00)
[2017-07-19 04:27] VITALS: PULSE 51
[2017-07-19 07:25] LABS: AUTOMATED NEUTROPHIL # 5.6 TH/MM3 (1.8-7.7); BASOPHIL % 0.7 % (0.0-2.0); EOSINOPHIL # 0.1 TH/MM3 (0-0.4); EOSINOPHIL % 1.4 % (0.0-4.0); HEMATOCRIT 43.1 % (39.0-51.0); HEMO FLAGS DIFF FINAL; LYMPH % 13.7 % (9.0-44.0); MEAN CELL VOLUME 90.9 FL (80.0-100.0); MEAN CORPUSCULAR HEMOGLOBIN 31.1 PG (27.0-34.0); MEAN CORPUSCULAR HGB CONC 34.2 % (32.0-36.0); MONO % 8.9 % (0.0-8.0); NEUT % 75.3 % (16.0-70.0); PLATELET COUNT 142 TH/MM3 (150-450); RED BLOOD COUNT 4.74 MIL/MM3 (4.50-5.90); RED CELL DISTRIBUTION WIDTH 16.1 % (11.6-17.2); WHITE BLOOD COUNT 7.5 TH/MM3 (4.0-11.0)
[2017-07-19 07:45] LABS: BICARBONATE 28.6 MEQ/L (21.0-32.0); POTASSIUM 4.5 MEQ/L (3.5-5.1)
[2017-07-19 08:00] VITALS: BP 124/67; PULSE 55; RESP 20; TEMP 98.1; O2SAT 95
[2017-07-19] MEDS: DOCUSATE SODIUM 50 MG/SENNA 8.6 MG TAB PO SCH (09:00)
[2017-07-19] MEDS: ASPIRIN 81 MG CHEW TAB CHEW SCH (09:29)
[2017-07-19] MEDS: SODIUM CHLORIDE 0.9% FLUSH 10 ML FLUSH IV FLUSH SCH (09:29)
[2017-07-19 12:00] VITALS: BP 138/69; PULSE 54; RESP 20; TEMP 98.2; O2SAT 96
--- NOTE | 2017-07-19 14:42 | HHI.DS ---
Discharge Summary Admission Date Jul 15, 2017 at 15:47 Discharge Date: Jul 19, 2017 Admitting Diagnosis Bradycardia Procedures Cardiac cath 07/18/17 Brief History - From Admission 76-year-old male presented initially to emergency department at [place] with dizziness and a sense of weakness. He has noticed the dizziness for the first time today in the morning when he tries to measure his blood pressure and was unable to obtain any readings so he checked his his pulse which was too slow to be read by his manual blood pressure cuff as well. He exercised a little bit at home to increase his heartrate and then the blood pressure cuff reported a pulse of 35. The patient states normally his heart rate is somewhat bradycardic in the 40s typically. He admits compliance with metoprolol and amlodipine. He started amlodipine about 3 weeks ago. He describes also some vague intermittent chest tightness over the past couple weeks however did not have a chest pain at the time of ER evaluation neither during my assessment. He denies shortness of breath. He's had no loss of consciousness today just dizziness. The patient underwent coronary catheterization in September revealing multiple vessel disease and he subsequently went to CABG performed at [facility]. He also underwent myomectomy due to hypertrophic cardiomyopathy. CBC/BMP: 07/19/17 0657 07/19/17 0657 Significant Findings Laboratory Tests Test 07/18/17 07:15 07/19/17 06:57 Monocytes (%) (Auto) 8.9 % (0.0-8.0) 8.9 % (0.0-8.0) Blood Urea Nitrogen 22 MG/DL (7-18) Estimat Glomerular Filtration Rate 58 ML/MIN (>89) 60 ML/MIN (>89) Platelet Count 142 TH/MM3 (150-450) Neutrophils (%) (Auto) 75.3 % (16.0-70.0) Imaging Last Impressions Chest X-Ray 07/15/17 1501 Signed Impressions: Service Date/Time: Tuesday, July 16, 2017 03:10 - CONCLUSION: Normal examination. Clips and wires suggest CABG. Shelton Martinez MD PE at Discharge GENERAL: Well-nourished, well-developed patient sitting up in bed in no acute distress. SKIN: Warm and dry. HEAD: Normocephalic. EYES: No scleral icterus. No injection or drainage. NECK: Supple, trachea midline. No JVD or lymphadenopathy. CARDIOVASCULAR: Bradycardic. RESPIRATORY: Breath sounds equal bilaterally. No accessory muscle use. GASTROINTESTINAL: Abdomen soft, non-tender, nondistended. MUSCULOSKELETAL: No cyanosis, or edema. BACK: Nontender without obvious deformity. NEURO: No gross deficits. PSYCH: Mood and affect appropriate. Pt update on day of discharge Patient denies chest pain or shortness of breath. The patient also denies palpitations, dizziness. The case was discussed with Dr. Alicia from cardiology. Patient has been evaluated by EPS as per Dr. Redmond's discussion with Dr Herring the patient does not require an ICD at this time. Cardiology cleared patient for discharged. Pt Condition on Discharge: Stable Discharge Disposition: Discharge Home Discharge Time: <= 30 minutes Discharge Instructions DIET: Follow Instructions for: Heart Healthy Diet Activities you can perform: Weight Bearing as Reji Follow up Referrals: Cardiology - 07/18/17 with Jian Henderson MD PCP Follow-up - 1 Week Continued Medications: Aspirin (Aspirin) 81 Mg Chew 81 MG CHEW DAILY, TAB 0 Refills Atorvastatin (Atorvastatin) 40 Mg Tab 40 MG PO HS for Cholesterol Management, #30 TAB 0 Refills Discontinued Medications: Amiodarone (Amiodarone) 200 Mg Tab 200 MG PO DAILY for Regulate Heart Beat, #30 TAB 0 Refills Amlodipine (Amlodipine) 5 Mg Tab 5 MG PO DAILY for Blood Pressure Management, #30 TAB 0 Refills Metoprolol Tartrate (Metoprolol Tartrate) 25 Mg Tab 25 MG PO BID, #60 TAB 0 Refills Cory Whitmore MD Jul 19, 2017 14:42
--- NOTE | 2017-07-19 19:45 | PD.CARD.PN ---
Subjective Subjective Remarks No events overnight Post-cath Doing well Objective Medications Current Medications Sodium Chloride (NS Flush) 2 ml UNSCH PRN IVF FLUSH AFTER USING IV ACCESS Last administered on 07/15/17 15:14; Start 07/15/17 at 15:15; Stop 07/19/17 at 15 :29; Status DC Atropine Sulfate (Atropine Inj) 0.5 mg Q5M PRN IV PUSH SYMPTOMATIC BRADYCARDIA ; Start 07/15/17 at 15:15; Stop 07/15/17 at 15:53; Status DC Calcium Gluconate (Calcium Gluconate Inj) 1 gm ONCE ONCE IV PUSH Last administered on 07/15/17 15:17; Start 07/15/17 at 15:15; Stop 07/15/17 at 15 :16; Status DC Atropine Sulfate (Atropine Inj) 1 mg STK-MED ONCE .ROUTE Last administered on 07/15/17 15:13; Start 07/15/17 at 15:09; Stop 07/15/17 at 15:10; Status DC Atropine Sulfate (Atropine Inj) 0.5 mg ONCE ONCE IV PUSH ; Start 07/15/17 at 15:45; Stop 07/15/17 at 15:46; Status DC Atropine Sulfate (Atropine Inj) 0.5 mg ONCE ONCE IV PUSH ; Start 07/15/17 at 15:45; Stop 07/15/17 at 15:46; Status DC Atropine Sulfate (Atropine Inj) 1 mg ONCE ONCE IV PUSH Last administered on 16:04; Start 07/15/17 at 16:00; Stop 07/15/17 at 16:01; Status DC Calcium Gluconate 1 gm/Dextrose 110 ml @ 110 mls/hr ONCE ONCE IV Last administered on 07/15/17 16:20; Start 07/15/17 at 16:00; Stop 07/15/17 at 16 :59; Status DC Glucagon (Glucagon Inj) 5 mg Q5M PRN IV PUSH Hemodynamic improvement; Start at 16:00; Stop 07/15/17 at 16:07; Status DC Glucagon 20 mg/ Dextrose 100 ml @ 15 mls/hr TITRATE PRN IV Hypoglycemia; Start 07/15/17 at 17:00; Stop 07/15/17 at 17:00; Status DC Ondansetron HCl (Zofran Inj) 4 mg Q4H PRN IV PUSH NAUSEA OR VOMITING Last administered on 07/15/17 16:04; Start 07/15/17 at 16:00; Stop 07/15/17 at 16 :07; Status DC Glucagon (Glucagon Inj) 1 mg ONCE ONCE IV PUSH Last administered on 16:19; Start 07/15/17 at 16:15; Stop 07/15/17 at 16:16; Status DC Aspirin (Aspirin Chew) 81 mg DAILY CHEW Last administered on 07/19/17 09:29; Start 07/16/17 at 09:00; Stop 07/19/17 at 15:29; Status DC Atorvastatin Calcium (Lipitor) 40 mg HS PO Last administered on 07/18/17 20: 57; Start 07/16/17 at 21:00; Stop 07/19/17 at 15:29; Status DC Hydralazine HCl (Apresoline Inj) 20 mg Q4H PRN IV PUSH SBP>160, DBP>90; Start 07/15/17 at 21:15; Stop 07/19/17 at 15:29; Status DC Sodium Chloride 1,000 ml @ 84 mls/hr [id number] IV Last administered on 09:25; Start 07/15/17 at 21:13; Stop 07/16/17 at 11:50; Status DC Sodium Chloride (NS Flush) 2 ml UNSCH PRN IV FLUSH FLUSH AFTER USING IV ACCESS ; Start 07/15/17 at 21:15; Stop 07/19/17 at 15:29; Status DC Sodium Chloride (NS Flush) 2 ml BID IV FLUSH Last administered on 07/19/17 09 :29; Start 07/16/17 at 09:00; Stop 07/19/17 at 15:29; Status DC Acetaminophen (Tylenol) 650 mg Q6H PRN PO PAIN 1-10 AND/OR FEVER >101F; Start 07/15/17 at 21:15; Stop 07/19/17 at 15:29; Status DC Ondansetron HCl (Zofran Inj) 4 mg Q6H PRN IV PUSH NAUSEA OR VOMITING; Start at 21:15; Stop 07/19/17 at 15:29; Status DC Zolpidem Tartrate (Ambien) 5 mg HS PRN PO INSOMNIA; Start 07/15/17 at 21:15; Stop 07/19/17 at 15:29; Status DC Albuterol/ Ipratropium (Duoneb Neb) 1 ampule Q2HR NEB PRN INH WHEEZING; Start 07/15/17 at 21:15; Stop 07/19/17 at 15:29; Status DC Heparin Sodium (Porcine) (Heparin Inj) 5,000 units Q8H SQ Last administered on 07/18/17 06:19; Start 07/15/17 at 22:00; Stop 07/18/17 at 10:35; Status DC Miscellaneous Information 1 [id number] XX Last administered on 07/16/17 04:00; Start 07/15/17 at 21:15; Stop 07/19/17 at 15:29; Status DC Chlorhexidine Gluconate (Chlorhexidine 2% Cloth) 3 pack Taper DAILY@04 TOP Last administered on 07/16/17 04:00; Start 07/16/17 at 04:00; Stop 07/19/17 at 15:29; Status DC Chlorhexidine Gluconate (Chlorhexidine 2% Cloth) 3 pack UNSCH PRN TOP HYGIENIC CARE; Start 07/15/17 at 21:15; Stop 07/19/17 at 15:29; Status DC Senna/Docusate Sodium (Kendra-Colace) 1 tab BID PO Last administered on 20:20; Start 07/16/17 at 09:00; Stop 07/19/17 at 15:29; Status DC Magnesium Hydroxide (Milk Of Magnesia Liq) 30 ml Q12H PRN PO Mild constipation ; Start 07/15/17 at 21:15; Stop 07/19/17 at 15:29; Status DC Sennosides (Senokot) 17.2 mg Q12H PRN PO Moderate constipation; Start at 21:15; Stop 07/19/17 at 15:29; Status DC Bisacodyl (Dulcolax Supp) 10 mg DAILY PRN RECTAL SEVERE CONSITIPATION; Start 07/15/17 at 21:15; Stop 07/19/17 at 15:29; Status DC Lactulose (Lactulose Liq) 30 ml DAILY PRN PO SEVERE CONSITIPATION; Start 07/15 at 21:15; Stop 07/19/17 at 15:29; Status DC Heparin Sodium/ Sodium Chloride 1,500 ml @ As Directed STK-MED ONCE .ROUTE ; Start 07/18/17 at 08:36; Stop 07/18/17 at 08:37; Status DC Midazolam HCl (Versed Inj) 2 mg STK-MED ONCE .ROUTE Last administered on 08:48; Start 07/18/17 at 08:48; Stop 07/18/17 at 08:49; Status DC Fentanyl Citrate (fentaNYL INJ) 100 mcg STK-MED ONCE .ROUTE Last administered on 07/18/17 08:48; Start 07/18/17 at 08:48; Stop 07/18/17 at 08:49; Status DC Heparin Sodium (Porcine) (Heparin Inj) 10,000 units STK-MED ONCE .ROUTE ; Start 07/18/17 at 09:30; Stop 07/18/17 at 09:31; Status DC Miscellaneous Information 1 ONCE ONCE XX ; Start 07/18/17 at 10:15; Stop at 10:35; Status DC Atropine Sulfate (Atropine Inj) 0.5 mg UNSCH PRN IV PUSH VAGAL REPONSE; Start 07/18/17 at 10:15; Stop 07/19/17 at 15:29; Status DC Iohexol (OMNIPAQUE 350 INJ (Candle Wrapper)) 100 ml STK-MED ONCE OTHER ; Start at 11:03; Stop 07/19/17 at 11:03; Status DC Iohexol (OMNIPAQUE 350 INJ (Candle Wrapper)) 50 ml STK-MED ONCE OTHER ; Start at 11:03; Stop 07/19/17 at 11:03; Status DC Vital Signs / I&O Vital Signs Date Time Temp Pulse Resp B/P (MAP) Pulse Ox O2 Delivery O2 Flow Rate FiO2 07/19/17 12:00 98.2 54 20 138/69 (92) 96 07/19/17 08:00 98.1 55 20 124/67 (86) 95 07/19/17 04:27 51 07/19/17 04:00 97.8 60 18 137/74 (95) 95 07/19/17 00:00 98.1 57 16 140/74 (96) 95 07/18/17 23:00 54 07/18/17 20:00 Room Air 07/18/17 20:00 98.0 54 18 136/67 (90) 96 I/O 07/18/17 07/18/17 07/18/17 07/19/17 07/19/17 07/19/17 07:00 15:00 23:00 07:00 15:00 23:00 Intake Total 0 ml 0 ml 240 ml 240 ml Output Total 850 ml 400 ml Balance -850 ml 0 ml -160 ml 240 ml Intake Oral 0 ml 0 ml 240 ml 240 ml Output Urine Total 850 ml 400 ml # Voids 3 2 2 # Bowel Movements 1 2 1 Physical Exam GENERAL: NAD, AAOx3 SKIN: Warm and dry. HEAD: Atraumatic. Normocephalic. EYES: Pupils equal and round. No scleral icterus. No injection or drainage. ENT: No nasal bleeding or discharge. Mucous membranes pink and moist. NECK: Trachea midline. No JVD. CARDIOVASCULAR: Regular rhythm, bradycardic RESPIRATORY: No accessory muscle use. Clear to auscultation. Breath sounds equal bilaterally. GASTROINTESTINAL: Abdomen soft, non-tender, nondistended. Hepatic and splenic margins not palpable. MUSCULOSKELETAL: Extremities without clubbing, cyanosis, or edema. No obvious deformities. Right groin no hematoma/bruit, neurovascularly intact distally NEUROLOGICAL: Awake and alert. No obvious cranial nerve deficits. Motor grossly within normal limits. Five out of 5 muscle strength in the arms and legs. Normal speech. PSYCHIATRIC: Appropriate mood and affect; insight and judgment normal. Laboratory Laboratory Tests Test 07/19/17 06:57 White Blood Count 7.5 TH/MM3 Red Blood Count 4.74 MIL/MM3 Hemoglobin 14.7 GM/DL Hematocrit 43.1 % Mean Corpuscular Volume 90.9 FL Mean Corpuscular Hemoglobin 31.1 PG Mean Corpuscular Hemoglobin Concent 34.2 % Red Cell Distribution Width 16.1 % Platelet Count 142 TH/MM3 Mean Platelet Volume 9.8 FL Neutrophils (%) (Auto) 75.3 % Lymphocytes (%) (Auto) 13.7 % Monocytes (%) (Auto) 8.9 % Eosinophils (%) (Auto) 1.4 % Basophils (%) (Auto) 0.7 % Neutrophils # (Auto) 5.6 TH/MM3 Lymphocytes # (Auto) 1.0 TH/MM3 Monocytes # (Auto) 0.7 TH/MM3 Eosinophils # (Auto) 0.1 TH/MM3 Basophils # (Auto) 0.0 TH/MM3 CBC Comment DIFF FINAL Differential Comment Blood Urea Nitrogen 18 MG/DL Creatinine 1.18 MG/DL Random Glucose 92 MG/DL Calcium Level 9.0 MG/DL Sodium Level 139 MEQ/L Potassium Level 4.5 MEQ/L Chloride Level 105 MEQ/L Carbon Dioxide Level 28.6 MEQ/L Anion Gap 5 MEQ/L Estimat Glomerular Filtration Rate 60 ML/MIN Assessment and Plan Problem List: (1) Bradycardia ICD Codes: R00.1 - Bradycardia, unspecified Status: Acute (2) Hx of CABG ICD Codes: Z95.1 - Presence of aortocoronary bypass graft (3) CAD (coronary artery disease) ICD Codes: I25.10 - Atherosclerotic heart disease of [place] coronary artery without angina pectoris (4) HOCM (hypertrophic obstructive cardiomyopathy) ICD Codes: I42.1 - Obstructive hypertrophic cardiomyopathy (5) H/O myomectomy ICD Codes: Z98.890 - Other specified postprocedural states (6) LBBB (left bundle branch block) ICD Codes: I44.7 - Left bundle-branch block, unspecified (7) First degree AV block ICD Codes: I44.0 - Atrioventricular block, first degree Assessment and Plan 1) Bradycardia while on BB/Amio BB and Amio stopped (concern with history of HOCM and NSVT) Heart rates now in the low 50s May take >30 days for Amio to be out of his system 2) No high risk AV blocks noted on telemetry 3) EF 55-60%, severe MR 4) Cath showing no significant disease, Hx CABGx3 (3/3 patent) HOCM grad peak to peak of 100, mean 60 5) Seen by EP cardio, no plan for ICD or biventricular pacing as patient is asymptomatic 6) Discussed with primary team, cardiovascularly stable for discharge to follow up with Dr. Henderson Review of records from January while at [facility]: While at [facility] for AAA open repair , had NSVT. Underwent stress testing and found to have lateral ischemia. Did not want catheterization at that time, so sent home on a Lifevest. Stopped the Lifevest after 2 months due to fernandez. Was placed on BB/Amio on discharge from [facility] due to NSVT and concern for arrhythmias especially with HOCM. Continued to have a HOCM gradient even after myomectomy (done in 2016). Clint Alicia DO Jul 19, 2017 19:45
== END 2017-07-19 15:29 | disposition home or self-care (01) | DRG 287 ==
LOC: PHED 14:43 → PHEDA 15:47 → HIME 18:22 → HIMN 19:15 → N04B 07-16 16:18
PROVIDERS: ADMIT Hospitalist; ATTEND Hospitalist
PROC: B2111ZZ Fluoroscopy of Multiple Coronary Arteries using Low Osmolar Contrast (ICD-10-PCS; 2017-07-18)
PROC: B2131ZZ Fluoroscopy of Multiple Coronary Artery Bypass Grafts using Low Osmolar Contrast (ICD-10-PCS; 2017-07-18)
PROC: 4A023N7 Measurement of Cardiac Sampling and Pressure, Left Heart, Percutaneous Approach (ICD-10-PCS; principal; 2017-07-18 08:45)
DX: R00.1 Bradycardia, unspecified (principal); I42.1 Obstructive hypertrophic cardiomyopathy; I95.9 Hypotension, unspecified; I44.7 Left bundle-branch block, unspecified; I25.10 Atherosclerotic heart disease of native coronary artery without angina pectoris; I44.0 Atrioventricular block, first degree; T44.7X5A Adverse effect of beta-adrenoreceptor antagonists, initial encounter; T46.2X5A Adverse effect of other antidysrhythmic drugs, initial encounter; E78.5 Hyperlipidemia, unspecified; N18.9 Chronic kidney disease, unspecified; I12.9 Hypertensive chronic kidney disease with stage 1 through stage 4 chronic kidney disease, or unspecified chronic kidney disease; N40.0 Benign prostatic hyperplasia without lower urinary tract symptoms; I73.9 Peripheral vascular disease, unspecified; F17.210 Nicotine dependence, cigarettes, uncomplicated; Z86.79 Personal history of other diseases of the circulatory system; Z92.21 Personal history of antineoplastic chemotherapy; Z95.1 Presence of aortocoronary bypass graft
CPT/HCPCS: 71010; 80048; 80053; 82550; 83735; 84100; 84484; 85002; 85025; 85347; 85610; 85730; 87641; 93005; 93306; 93459; 93571; 96374; C1769; C1887; C1893; J0461; J0610; J1610; J1644; J2250; J2405; J3010; J7030; Q9967

== ENCOUNTER 2018-05-21 12:10 | Inpatient (IN) ==
[2018-05-21] MEDS ORDERED: dilTIAZem Inj 125 MG in Sodium Chlor 0.9% Inj 100 ML IV.CONT PRN (12:38)
[2018-05-21] MEDS ORDERED: MethylPREDNISolone Sod Succinate Inj 125 MG/2 ML Vial IV.PUSH ONE (12:47)
--- NOTE | 2018-05-21 13:06 | ED ---
HPI General Chief Complaint: Arrhythmia / Palpitations Stated Complaint: Feeling tired x 5 days Time Seen by Provider: 05/21/18 12:38 Source: patient Mode of arrival: ambulatory Limitations: no limitations History of Present Illness MD complaint: Reports rapid heart beat Onset (ago): hour(s) (Noticed this morning) Duration: constant Context: Reports other (He reports that he has been sick for about 1 week with chest congestion) Arrhythmia history: Reports atrial fibrillation (Possible remote history of atrial fibrillation which occurred while hospitalized following cardiac surgery) Associated symptoms: Reports other Related Data Home Medications Medication Instructions Recorded Confirmed aspirin [Aspirin Low Dose] 81 mg PO DAILY 05/21/18 05/21/18 atorvastatin 0 mg PO DAILY 05/21/18 05/21/18 metoprolol tartrate 25 mg PO DAILY PRN 05/21/18 05/21/18 Allergies Allergy/AdvReac Type Severity Reaction Status Date / Time No Known Allergies Allergy Verified 05/21/18 12:21 Review of Systems ROS: all other systems reviewed are negative Respiratory Reports chest congestion and Reports cough PMFSH Medical History Medical History AAA (abdominal aortic aneurysm) (Acute) CAD (coronary artery disease) (Chronic) Bradycardia, sinus (Resolved) HOCM (hypertrophic obstructive cardiomyopathy) (Resolved) Surgical History Surgical History Hx of CABG (Acute) Social History Social History Substance History: No History of Abuse Smoking Status: Current every day smoker Tobacco Type: Cigarettes How Often Do You Have a Drink Containing Alcohol: Monthly or less Recent Travel in [facility] within the Last 8 Weeks: No Recent Out of Country Travel within the Last 8 Weeks: No Exam Const General: cooperative, healthy appearing and comfortable Orientation: alert, awake and oriented x3 HENMT Head: normal to inspection, normocephalic and atraumatic Eyes General: appearance normal, both eyes and all related structures Conjunctivae: conjunctivae normal Sclera: sclerae normal EOM: EOM intact bilaterally Neck Neck: normal visual inspection and full ROM Chest Chest: normal inspection of the chest Resp Effort & Inspection: normal respiratory effort and able to speak in complete sentences Auscultation: wheezes (Diffuse coarse wheezing) Cardio Rate: tachycardic Rhythm: abnormal rhythm Heart Sounds: murmur systolic GI Inspection: normal to inspection Palpation: soft Back/Spine/Pelvis Cervical Spine: cervical ROM normal Thoracic/Lumbar Spine: thoraco-lumbar ROM normal Skin General: no rashes or lesions noted, turgor normal and dry skin Neuro General: alert, awake, oriented x3, moves all extremities and CN's II-XI intact bilaterally Extrem General: normal to inspection, full ROM and no pedal edema Psych Appearance: grossly normal Mental Status: mental status grossly normal Speech and Movement: speech and movement normal Mood: congruent mood Affect: normal affect Attitude: cooperative Thought Process: normal Thought Content: normal Judgment: judgment good Course Reevaluation(s) Reevaluation #1: Following a Cardizem bolus, his heart rate is less than 100 but his systolic blood pressure is now in the 70s. He is being given a fluid bolus. Time: 12:59 Reevaluation #2: Systolic blood pressure seems to have stabilized around 100. His heart rate has started creeping back up. We will start the Cardizem drip. Time: 14:23 Consultations Consultation #1: Dr. Pedrito Wellington will admit the patient to the hospital. Time: 14:23 Initial Documented Vital Signs Temperature 98.3 F 05/21/18 12:22 Pulse Rate 143 H 05/21/18 12:22 Respiratory Rate 18 05/21/18 12:22 Blood Pressure 153/71 H 05/21/18 12:22 Pulse Oximetry 96 05/21/18 12:22 Last Documented Vital Signs Temperature 98.3 F 05/21/18 12:22 Pulse Rate 117 H 05/21/18 14:16 Respiratory Rate 16 05/21/18 14:16 Blood Pressure 100/70 05/21/18 14:16 Pulse Oximetry 93 L 05/21/18 14:16 Critical Care Time Critical Care Time: Yes Total Critical Care Time: 45 Attestation: Time to perform other separately billable procedures was not included in the critical care time. My time did not include minutes spent treating any other patients simultaneously or on activities that did not directly contribute to the patient's treatment. The services I provided to this patient were to treat and/or prevent clinically significant deterioration due to tachycardia, hypotension I provided critical care services requiring my management, as noted below: Chart data review, documentation time, medication orders and management, vital sign assessments/reviewing monitor data, ordering and reviewing lab tests, ordering and interpreting/reviewing x-rays and diagnostic studies, care of the patient and discussion of the patient with the admitting physicians Medical Decision Making MDM Narrative Medical decision making narrative: This patient presents with a chief complaint of a rapid heart rate associated with low blood pressure. It was noted this morning. He gives a remote history of atrial fibrillation which occurred following cardiac surgery. Other than that, he has always been in a sinus rhythm. The patient reports that he has felt poorly for the last week with a chest cold. On examination, he is in atrial fibrillation with a rapid ventricular response of about 140. His initial systolic blood pressure is 98. He was treated with a Cardizem bolus. His heart rate dropped below 100 but his blood pressure also dropped into the 70s. He is now receiving a fluid bolus. Regarding his chest congestion and wheezing, I have given him a dose of Solu- Medrol. I have not given him any nebulizer treatments yet because of his tachycardia. He is not in any respiratory distress. Medical Screen Exam Complete: Yes Emergency Medical Condition: Yes Differential Diagnosis Differential Diagnosis: Differential diagnosis of tachycardia includes but is not limited to PSVT, atrial fibrillation with a rapid ventricular response, sinus tachycardia (due to hypovolemia, anemia, thyrotoxicosis, PE) Differential diagnosis includes but is not limited to viral respiratory illness , bronchitis, pneumonia, allergies, CHF, asthma/COPD. Lab Data Lab results reviewed: Yes I reviewed the patient's lab results. Result diagrams: 05/21/18 12:54 05/21/18 12:54 Lab Results 05/21/18 05/21/18 Range/Units 12:54 12:54 CBC w Diff Auto diff final WBC 7.9 (4.0-11.0) th/mm3 RBC 5.42 (4.50-5.90) mil/mm3 Hgb 17.2 H (13.0-17.0) gm/dL Hct 50.9 (39.0-51.0) % MCV 93.9 (80.0-100.0) fL MCH 31.6 (27.0-34.0) pg MCHC 33.7 (32.0-36.0) % RDW 13.4 (11.6-17.2) % Plt Count 153 (150-450) th/mm3 MPV 10.4 (7.0-11.0) fL Neut % (Auto) 73.1 H (16.0-70.0) % Lymph % (Auto) 17.3 (9.0-44.0) % Simpson % (Auto) 7.3 (0.0-8.0) % Eos % (Auto) 1.5 (0.0-4.0) % Baso % (Auto) 0.8 (0.0-2.0) % Neut # (Auto) 5.7 (1.8-7.7) th/mm3 Lymph # (Auto) 1.4 (1.0-4.8) th/mm3 Simpson # (Auto) 0.6 (0.0-0.9) th/mm3 Eos # (Auto) 0.1 (0.0-0.4) th/mm3 Baso # (Auto) 0.1 (0.0-0.2) th/mm3 WBC Differential . Differential Comment . Sodium 139 (136-145) meq/L Potassium 4.0 (3.5-5.1) meq/L Chloride 105 (98-107) meq/L Carbon Dioxide 22.2 (21.0-32.0) meq/L Anion Gap 12 (5-15) meq/L BUN 24 H (7-18) mg/dL Creatinine 1.20 (0.60-1.30) mg/dL Estimated GFR 59 L (>89) mL/min Random Glucose 118 H (74-106) mg/dL Calcium 8.6 (8.5-10.1) mg/dL Total Bilirubin 0.9 (0.2-1.0) mg/dL AST 23 (15-37) U/L ALT 23 (12-78) U/L Alkaline Phosphatase 146 H (45-117) U/L Troponin I 0.05 (0.02-0.05) ng/mL Total Protein 7.2 (6.4-8.2) g/dL Albumin 3.9 (3.4-5.0) g/dL TSH 2.560 (0.358-3.740) uIU/mL Imaging Data Attestation: I personally reviewed and interpreted this imaging study as follows : Radiologist's impression: Chest X-Ray 05/21/18 12:47 CONCLUSION: Stable interstitial changes bilaterally. No acute cardiopulmonary abnormality is identified. ECG Data EKG Prior to Arrival: No Attestation: I personally reviewed and interpreted this ECG as follows: (EKG shows atrial fibrillation with a ventricular response of 143. He has diffuse ST segment depression laterally. He also has some inferior changes. This will be reevaluated following rate control.) Prior ECG tracings: available for review (He has had a left bundle branch block before with a similar appearance of his ST segments.) Discharge Plan Discharge Disposition Patient Disposition: 30 Still Patient Discharge Details Diagnosis: Atrial fibrillation with RVR, Bronchitis Physicians Team ED Provider: Fernanda Couch Primary Care Provider: Abilio Childers Rxs /Orders / Referrals /Forms Prescriptions: No Action metoprolol tartrate 25 mg Tablet 25 mg PO DAILY PRN (Reason: Hypertension) RF: 0 atorvastatin 20 mg Tablet PO DAILY RF: 0 aspirin [Aspirin Low Dose] 81 mg Tablet,Delayed Release (Dr/Ec) 81 mg PO DAILY RF: 0 Status ED Status: Pending Admission
[2018-05-21] MEDS: Sod Chloride 0.9% Inj 1,000 ML IV.SIG SCH ×2 (13:07→14:59)
[2018-05-21 13:30] LABS: Chloride 105 meq/L (98-107); Sodium 139 meq/L (136-145)
[2018-05-21 13:31] LABS: Baso # (Auto) 0.1 th/mm3 (0.0-0.2); Baso % (Auto) 0.8 % (0.0-2.0); Eos # (Auto) 0.1 th/mm3 (0.0-0.4); Eos % (Auto) 1.5 % (0.0-4.0); Hematocrit 50.9 % (39.0-51.0); Hemoglobin 17.2 gm/dL (13.0-17.0); Lymph # (Auto) 1.4 th/mm3 (1.0-4.8); Lymph % (Auto) 17.3 % (9.0-44.0); Mean Corpuscular HGB Conc 33.7 % (32.0-36.0); Mean Corpuscular Hemoglobin 31.6 pg (27.0-34.0); Mean Corpuscular Volume 93.9 fL (80.0-100.0); Mean Platelet Volume 10.4 fL (7.0-11.0); Mono # (Auto) 0.6 th/mm3 (0.0-0.9); Mono % (Auto) 7.3 % (0.0-8.0); Neut # (Auto) 5.7 th/mm3 (1.8-7.7); Neut % (Auto) 73.1 % (16.0-70.0); Platelet Count 153 th/mm3 (150-450); Red Blood Count 5.42 mil/mm3 (4.50-5.90); Red Cell Distribution Width 13.4 % (11.6-17.2); White Blood Count 7.9 th/mm3 (4.0-11.0)
[2018-05-21 13:35] LABS: Calcium 8.6 mg/dL (8.5-10.1)
--- NOTE | 2018-05-21 13:35 | XR ---
EXAM DATE: 05/21/2018 12:47 PM EDT AGE/SEX: 77 years / Male INDICATIONS: Cough, rapid heart rate CLINICAL DATA: This is the patient's initial encounter. Patient reports that signs and symptoms have been present for 4 - 6 days and indicates a pain score of 0/10. MEDICAL/SURGICAL HISTORY: Cardiovascular disease. CABG. COMPARISON: [facility], CHEST SINGLE AP, 07/15/2017. [facility], XR CHEST PA AND LAT, 04/27/2016. . FINDINGS: Single frontal view of the chest demonstrates a normal-sized cardiac silhouette with calcification of the aorta. Patient is post median sternotomy and CABG. There is interstitial prominence bilaterally similar to the prior examination. No effusion, consolidation, or pneumothorax is identified. Bones an d soft tissues demonstrate no acute finding. CONCLUSION: Stable interstitial changes bilaterally. No acute cardiopulmonary abnormality is identified. Electronically signed by: Dewayne Flood MD 05/21/2018 1:34 PM EDT
[2018-05-21 13:36] LABS: Albumin 3.9 g/dL (3.4-5.0); Anion Gap 12 meq/L (5-15); Blood Urea Nitrogen 24 mg/dL (7-18); Carbon Dioxide 22.2 meq/L (21.0-32.0); Glucose,Random 118 mg/dL (74-106)
[2018-05-21 13:39] LABS: Alanine Aminotransferase 23 U/L (12-78); Aspartate Aminotransferase 23 U/L (15-37); Glomerular Filtration Rate 59 mL/min (>89)
[2018-05-21 13:41] LABS: Alkaline Phosphatase 146 U/L (45-117); Total Protein 7.2 g/dL (6.4-8.2)
[2018-05-21 13:44] LABS: Troponin I 0.05 ng/mL (0.02-0.05)
[2018-05-21] MEDS ORDERED: Sod Chloride 0.9% Inj 1,000 ML IV.SIG SCH (14:45)
[2018-05-21] MEDS ORDERED: Amiodarone Inj 150 MG in Dextrose 5% in Water Inj 97 ML IV.SIG ONE ×2 (15:03)
--- NOTE | 2018-05-21 15:30 | P.HPIM ---
History of Present Illness Primary Care Physician: Abilio Childers MD History of Present Illness: Mr. Guadalupe is a 77 year old male. He has a history of Bradycardia associated with medications. Presently he is on a PRN Metoprolol, but he denies using that this morning (he takes it for systolic BP >155 mmHg). He was feeling dizzy today. He took his pulse with an oximeter and it was at 160 bpm. He is found to be in an A-fib RVR pattern at arrival to the ER. Diltiazem was provided and temporarily resolved his RVR, but induced hypotension. Diltiazem is discontinued, RVR returned without diltiazem. We discussed Amiodarone as an alternative treatment. He denies chest pain, or syncope. No other complaints. - Diagnosis (1) Hypotension (2) Atrial fibrillation with RVR (3) Bronchitis Inpatient Certification: I certify that the inpatient services were ordered in accordance with Medicare regulations governing the order. This includes certification that hospital inpatient services are reasonable and necessary and in the case of services not specified as inpatient-only under 42 CFR 419.22(n), that they are appropriately provided as inpatient services in accordance to with the 2-midnight benchmark under 43 CFR 412.3(e) Estimated Total Length of Stay (Days): 3 Plans for Post Hospital Care: Home Review of Systems Constitutional: No fevers, no chills no night sweats, no fatigue, no weakness Eyes: No eye pain, no blurry vision, no loss of vision ENT: No sore throat, no ear pain, no rhinorrhea Cardiovascular: No chest pain, no tachycardia, palpitations, no shortness of breath, no syncope, dizziness Respiratory: No wheezing, no cough, no shortness of breath Gastrointestinal: No abdominal pain, no black tarry stools, no bright red blood per rectum, no vomiting, no diarrhea Musculoskeletal: No joint pain, no muscle cramps, no stiffness Integumentary: No rash, no ulcers, no drainage Neurologic: No sensory loss, no loss of motor function, dizziness Psychiatric: No behavioral changes, no hallucinations, no suicidal ideations [facility] - History History Provided By: Patient - Medical History Medical History: Medical History (Last Updated 05/21/18 @ 13:15 by Anne Marie Hernandez RN) AAA (abdominal aortic aneurysm) CAD (coronary artery disease) Bradycardia, sinus HOCM (hypertrophic obstructive cardiomyopathy) - Surgical History Surgical History: Surgical History (Last Reviewed 05/21/18 @ 13:15 by Anne Marie Hernandez RN) Hx of CABG - Family History Family History: Family History (Last Updated 05/21/18 @ 15:22 by Javan Wellington MD) Other Osteoarthritis - Tobacco History Tobacco Use In Past 30 Days: Yes Smoking Status: Current every day smoker Tobacco Type: Cigarettes - Alcohol History How Often Do You Have a Drink Containing Alcohol: Monthly or less - Substance Use History Substance History: No History of Abuse - Travel History Recent Travel in the [place] Within the Last 8 Weeks: No Recent Travel Out of the Country Within the Last 8 Weeks: No - Immunization History Tetanus Immunization: Unsure Hx Influenza Vaccine This Season: No Medications and Allergies Active Medications: Active Medications Al Hydroxide/Mg Hydroxide (Milk Of Sana Liq) 30 ml PO Q12H PRN PRN Reason: Mild Constipation Aspirin (Ecotrin) 81 mg PO DAILY NIMA Atorvastatin Calcium (Lipitor) 20 mg PO DAILY NIMA Sodium Chloride (Ns Inj) 1,000 mls @ 0 mls/hr IV.SIG BOLUS NIMA Last Admin: 05/21/18 14:59 Dose: 1,000 mls/hr Sodium Chloride (Ns Inj) 1,000 mls @ 100 mls/hr IV.CONT .Q10H NIMA Sodium Chloride (Ns Inj) 1,000 mls @ 0 mls/hr IV.SIG BOLUS NIMA Amiodarone HCl 450 mg/ (Dextrose) 250 mls @ 33.33 mls/hr IV.CONT TITRATE PRN; Protocol PRN Reason: Per Protocol Amiodarone HCl 150 mg/ (Dextrose) 100 mls @ 100 mls/hr IV.SIG ONCE ONE Stop: 05/21/18 16:02 Ondansetron HCl (Zofran Inj) 4 mg IV.PUSH Q6H PRN PRN Reason: NAUSEA OR VOMITING Sodium Chloride (Ns Flush) 2 ml IV.FLUSH UNSCH PRN PRN Reason: FLUSH AFTER USING IV ACCESS Allergies Allergy/AdvReac Type Severity Reaction Status Date / Time No Known Allergies Allergy Verified 05/21/18 12:21 Home Medications Medication Instructions Recorded Confirmed Type aspirin [Aspirin Low Dose] 81 mg PO DAILY 05/21/18 05/21/18 History atorvastatin 0 mg PO DAILY 05/21/18 05/21/18 History metoprolol tartrate 25 mg PO DAILY PRN 05/21/18 05/21/18 History Exam Vital signs: Vital Signs 05/21/18 12:22 05/21/18 12:57 05/21/18 13:13 Temperature 98.3 F Pulse Rate 143 H 107 H 90 Respiratory Rate 18 18 19 Blood Pressure 153/71 H 98/68 L 95/77 L Pulse Oximetry 96 98 98 05/21/18 14:16 05/21/18 14:22 05/21/18 14:45 Temperature Pulse Rate 117 H 128 H 130 H Respiratory Rate 16 18 18 Blood Pressure 100/70 93/77 L 117/88 Pulse Oximetry 93 L Intake & Output 05/20/18 05/21/18 05/21/18 18:59 06:59 18:59 Intake Total 1000 / 1000 Balance 1000 / 1000 Weight 66 kg Intake: IV 1000 / 1000 NS Inj 1,000 ML @ Wide Open IV. 1000 / 1000 SIG BOLUS NIMA Rx#:[id number] Narrative: GENERAL: NAD, A&Ox3 HEAD: Normocephalic. NECK: Supple, trachea midline. No lymphadenopathy. EYES: No scleral icterus. No injection or drainage. 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 RESPIRATORY: Breath sounds equal bilaterally. No accessory muscle use. GASTROINTESTINAL: Abdomen soft, non-tender, nondistended. MUSCULOSKELETAL: No cyanosis, or edema. SKIN: Warm and dry. NEURO: No focal neurological deficits. Results - Labs CBC & Chem 7: 05/21/18 12:54 05/21/18 12:54 Labs: Short CBC 05/21/18 Range/Units 12:54 WBC 7.9 (4.0-11.0) th/mm3 Hgb 17.2 H (13.0-17.0) gm/dL Hct 50.9 (39.0-51.0) % Plt Count 153 (150-450) th/mm3 BMP 05/21/18 12:54 Sodium 139 Potassium 4.0 Chloride 105 Carbon Dioxide 22.2 BUN 24 H Creatinine 1.20 Calcium 8.6 Cardiac Enzymes 05/21/18 Range/Units 12:54 Troponin I 0.05 (0.02-0.05) ng/mL Liver Function 05/21/18 Range/Units 12:54 Total Bilirubin 0.9 (0.2-1.0) mg/dL AST 23 (15-37) U/L ALT 23 (12-78) U/L Alkaline Phosphatase 146 H (45-117) U/L Albumin 3.9 (3.4-5.0) g/dL - Imaging Impressions Chest X-Ray 05/21/18 12:47 CONCLUSION: Stable interstitial changes bilaterally. No acute cardiopulmonary abnormality is identified. Caprini VTE Risk Assessment Caprini VTE Risk Assessment: Moderate/High Risk (score >= 2) Caprini Risk Assessment Model: Point Value = 1 Point Value = 2 Point Value = 3 Point Value = 5 Age 41-60 Minor surgery BMI > 25 kg/m2 Swollen legs Varicose veins or History of unexplained or recurrent spontaneous Oral contraceptives or hormone replacement Sepsis (< 1 month) Serious lung disease, including pneumonia (< 1 month) Abnormal pulmonary function Acute myocardial infarction Congestive heart failure (< 1 month) History of inflammatory bowel disease Medical patient at bed rest Age 61-74 Arthroscopic surgery Major open surgery (> 45 min) Laparoscopic surgery (> 45 min) Malignancy Confined to bed (> 72 hours) Immobilizing plaster cast Central venous access Age >= 75 History of VTE Family history of VTE Factor V Leiden Prothrombin [id number] Lupus anticoagulant Anticardiolipin antibodies Elevated serum homocysteine Heparin-induced thrombocytopenia Other congenital or acquired thrombophilia Stroke (< 1 month) Elective arthroplasty Hip, pelvis, or leg fracture Acute spinal cord injury (< 1 month) Prophylaxis Regimen: Total Risk Factor Score Risk Level Prophylaxis Regimen 0-1 Low Early ambulation 2 Moderate Order ONE of the following: *Sequential Compression Device (SCD) *Heparin 5000 units SQ BID 3-4 Higher Order ONE of the following medications: *Heparin 5000 units SQ TID *Enoxaparin/Lovenox 40 mg SQ daily (WT < 150 kg, CrCl > 30 mL/min) *Enoxaparin/Lovenox 30 mg SQ daily (WT < 150 kg, CrCl > 10-29 mL/min) *Enoxaparin/Lovenox 30 mg SQ BID (WT < 150 kg, CrCl > 30 mL/min) AND/OR *Sequential Compression Device (SCD) 5 or more Highest Order ONE of the following medications: *Heparin 5000 units SQ TID (Preferred with Epidurals) *Enoxaparin/Lovenox 40 mg SQ daily (WT < 150 kg, CrCl > 30 mL/min) *Enoxaparin/Lovenox 30 mg SQ daily (WT < 150 kg, CrCl > 10-29 mL/min) *Enoxaparin/Lovenox 30 mg SQ BID (WT < 150 kg, CrCl > 30 mL/min) AND *Sequential Compression Device (SCD) Assessment and Plan - Assessment (1) Hypotension Code(s): I95.9 - Hypotension, unspecified Status: Acute (2) Atrial fibrillation with RVR Code(s): I48.91 - Unspecified atrial fibrillation Status: Acute (3) Bronchitis Code(s): J40 - Bronchitis, not specified as acute or chronic Status: Acute - Plan 77 year old male admitted with A-fib RVR and Hypotension A-fib RVR Poor side effects to initial cardizem treatment Start Amiodarone Follow in ICU Telemetry Follow troponin Cardiology consulted Hypotension Related to Cardizem Cardizem discontinued BP stabilized off Cardizem Monitor for recurrence CAD Cardiac Hypertrophy AAA Follow clinically Hypertension Continue baseline treatment Follow blood pressures Adjust treatments as needed Hx of Bradycardia Treatment related Caution with beta blockers DVT prophylaxis Heparin
[2018-05-21] MEDS ORDERED: Digoxin Inj 500 MCG/2 ML Ampul IV.PUSH ONE ×2 (15:42→20:00)
[2018-05-21] MEDS ORDERED: Warfarin Consult Pharmacy OTHER PRN (15:50)
[2018-05-21] MEDS: Sod Chloride 0.9% Inj 1,000 ML IV.CONT SCH (15:57)
[2018-05-21 16:45] LABS: INR 1.1 Ratio; Prothrombin Time 10.7 sec (9.8-11.6)
[2018-05-21] MEDS ORDERED: dilTIAZem 30 MG Tablet PO SCH (18:00)
--- NOTE | 2018-05-21 19:17 | MB ---
cc: Jian Henderson MD DATE: 05/21/2018 REASON FOR CONSULTATION: New onset atrial fibrillation. HISTORY OF PRESENT ILLNESS: The patient is a pleasant complicated patient well known to myself who has a history of severe hypertrophic obstructive cardiomyopathy, status post myomectomy with mitral valve repair. However, despite this surgery, significant LVOT obstruction remained with severe mitral regurgitation. Additionally, the patient has a history of ventricular arrhythmia, peripheral arterial disease and recent complicated AAA repair. Despite all of this, the patient had been doing relatively well, but through a routine check of his vitals, which the patient apparently does daily, he realized his heart rate was elevated. Other than feeling somewhat tired over the last few days, he was otherwise asymptomatic. He presented to the emergency department in rapid atrial fibrillation. Initially, his blood pressure dropped significantly with IV Cardizem, though his heart rate did become better controlled. Again, he is asymptomatic, denying any chest pain, shortness of breath, lightheadedness, dizziness. PAST MEDICAL HISTORY: 1. Hypertrophic cardiomyopathy, status post myomectomy with residual LVOT gradient. 2. Severe mitral regurgitation. 3. AAA, status post repair. 4. Ventricular tachycardia. (patient declined AICD). CURRENT MEDICATIONS: 1. Aspirin 81 mg daily. 2. Atorvastatin 20 mg daily. 3. Digoxin load has been initiated. 4. Subcutaneous heparin. ALLERGIES: NO KNOWN DRUG ALLERGIES. PHYSICAL EXAMINATION: VITAL SIGNS: Pulse 130, respiratory rate 18, BP 115/88, saturating 97 on room air. GENERAL: Pleasant gentleman in no distress. NECK: No JVD. LUNGS: Clear to auscultation bilaterally. CARDIOVASCULAR: Irregularly irregular rhythm with a rapid rate. A harsh 3/6 systolic murmur is appreciated. ABDOMEN: Benign. EXTREMITIES: No edema. LABORATORY DATA: White count 10.9, hematocrit 50.9, platelets 153. Sodium 139, potassium 4.0, chloride 105, bicarbonate 22.2, BUN 24, creatinine 1.2, glucose 118. EKG shows atrial fibrillation with a rapid ventricular response and diffuse nonspecific intraventricular conduction delay and diffuse ST-T changes. ASSESSMENT AND PLAN: New onset atrial fibrillation. The patient, with the complex cardiac history above, has new onset atrial fibrillation, which is probably an expected feature of his other cardiac problems. Given his relatively low blood pressure, I will try loading him with digoxin in an attempt to lower his heart rate without lowering his blood pressure further. He will require anticoagulation, and given his severe mitral regurgitation, I am going to use warfarin initially. Though his electrocardiogram is ischemic-appearing, my recollection indicates there is no significant coronary artery disease in this patient, though I will have to confirm that with my office chart when I get back. Further recommendations based on his clinical course. Thank you again for the opportunity to participate in this patient's care. MD LEONARDO Colón/yadira , 03:50 PM , 03:58 PM
[2018-05-21] MEDS: Heparin - SQ 10,000 UNITS/ML Vial SQ SCH (21:18)
[2018-05-22] MEDS: Sod Chloride 0.9% Inj 1,000 ML IV.CONT SCH (01:28)
[2018-05-22] MEDS ORDERED: Digoxin Inj 500 MCG/2 ML Ampul IV.PUSH ONE (02:00)
[2018-05-22 04:57] LABS: Baso % (Auto) 0.3 % (0.0-2.0); Eos % (Auto) 0.3 % (0.0-4.0); Hematocrit 44.3 % (39.0-51.0); Lymph # (Auto) 0.6 th/mm3 (1.0-4.8); Lymph % (Auto) 8.2 % (9.0-44.0); Mean Corpuscular HGB Conc 33.8 % (32.0-36.0); Mean Corpuscular Volume 94.5 fL (80.0-100.0); Mono # (Auto) 0.1 th/mm3 (0.0-0.9); Mono % (Auto) 1.5 % (0.0-8.0); Neut # (Auto) 7.1 th/mm3 (1.8-7.7); Neut % (Auto) 89.7 % (16.0-70.0); Platelet Count 138 th/mm3 (150-450); Red Blood Count 4.69 mil/mm3 (4.50-5.90); Red Cell Distribution Width 13.3 % (11.6-17.2); White Blood Count 7.8 th/mm3 (4.0-11.0)
[2018-05-22 05:07] LABS: Chloride 109 meq/L (98-107); Potassium 4.4 meq/L (3.5-5.1); Sodium 140 meq/L (136-145)
[2018-05-22 05:13] LABS: Calcium 7.9 mg/dL (8.5-10.1)
[2018-05-22 05:14] LABS: Albumin 3.4 g/dL (3.4-5.0); Anion Gap 10 meq/L (5-15); Blood Urea Nitrogen 19 mg/dL (7-18); Carbon Dioxide 20.9 meq/L (21.0-32.0); Glucose,Random 121 mg/dL (74-106)
[2018-05-22 05:17] LABS: Alanine Aminotransferase 20 U/L (12-78); Aspartate Aminotransferase 26 U/L (15-37); Glomerular Filtration Rate 81 mL/min (>89)
[2018-05-22 05:18] LABS: Total Protein 6.4 g/dL (6.4-8.2)
[2018-05-22 05:20] LABS: Alkaline Phosphatase 121 U/L (45-117)
[2018-05-22 05:36] LABS: Troponin I 0.67 ng/mL (0.02-0.05)
[2018-05-22 05:41] VITALS: TEMP 97.6
[2018-05-22] MEDS: Heparin - SQ 10,000 UNITS/ML Vial SQ SCH (09:43)
--- NOTE | 2018-05-22 10:02 | P.PN ---
Subjective Interval history: Pt feels well, wants to go home, no sx, in sinus nancy. Physical Exam Vital signs: Vital Signs 05/21/18 12:22 05/21/18 12:35 05/21/18 12:47 Temperature 98.3 F Pulse Rate 143 H 139 H Respiratory Rate 18 19 Blood Pressure 153/71 H 118/74 Pulse Oximetry 96 96 96 05/21/18 12:55 05/21/18 12:57 05/21/18 13:13 Temperature Pulse Rate 92 H 107 H 90 Respiratory Rate 19 18 19 Blood Pressure 78/60 L 98/68 L 95/77 L Pulse Oximetry 95 98 98 05/21/18 14:16 05/21/18 14:22 05/21/18 14:45 Temperature Pulse Rate 117 H 128 H 130 H Respiratory Rate 16 18 18 Blood Pressure 100/70 93/77 L 117/88 Pulse Oximetry 93 L 05/21/18 15:40 05/21/18 16:21 05/21/18 16:25 Temperature Pulse Rate 132 H 122 H 126 H Respiratory Rate 18 18 25 H Blood Pressure 116/81 113/74 96/77 L Pulse Oximetry 96 95 05/21/18 17:00 05/21/18 18:00 05/21/18 19:00 Temperature 98.7 F Pulse Rate 66 70 66 Respiratory Rate 31 H 26 H 22 Blood Pressure 152/85 H 140/84 Pulse Oximetry 95 96 96 05/21/18 19:38 05/21/18 20:00 05/21/18 21:00 Temperature 98 F Pulse Rate 55 L 60 Respiratory Rate 25 H 21 Blood Pressure 147/68 H 155/76 H Pulse Oximetry 96 98 05/21/18 22:00 05/21/18 23:00 05/22/18 00:00 Temperature 98 F Pulse Rate 58 L 60 60 Respiratory Rate 20 22 23 Blood Pressure 157/71 H 138/73 150/76 H Pulse Oximetry 05/22/18 01:00 05/22/18 02:00 05/22/18 03:00 Temperature Pulse Rate 64 58 L 52 L Respiratory Rate 19 18 17 Blood Pressure 133/60 155/65 H 128/68 Pulse Oximetry 05/22/18 04:00 05/22/18 05:00 05/22/18 06:00 Temperature 97.6 F Pulse Rate 58 L 60 54 L Respiratory Rate 24 22 24 Blood Pressure 126/74 137/69 142/72 H Pulse Oximetry 05/22/18 07:00 05/22/18 08:00 05/22/18 09:00 Temperature Pulse Rate 54 L 58 L 66 Respiratory Rate 16 30 H 30 H Blood Pressure 131/55 L 139/75 201/77 H Pulse Oximetry Intake & Output 05/21/18 05/22/18 05/22/18 18:59 06:59 18:59 Intake Total 1999 1420 / 1420 Balance 1999 1420 / 1420 Weight 66 kg Intake: IV 1999 1000 / 1000 NS Inj 1,000 ML @ 100 mls/hr IV 1000 / 1000 .CONT .Q10H NIMA Rx#:[id number] NS Inj 1,000 ML @ Wide Open IV. 1999 SIG BOLUS NIMA Rx#:[id number] Oral 420 / 420 Other: # Voids 3 Date of Last Bowel Movement 05/21/18 05/21/18 05/21/18 # Bowel Movements 0 - Constitutional no acute distress - Routine HEENT Exam Head: Present: normocephalic Eye: Present: EOMI ENT: Present: mucous membranes moist - Routine Neck Exam Present: supple. Absent: JVD - Routine Respiratory Exam Present: CTA bilaterally - Routine Cardiovascular Exam Present: RRR, murmur - Routine Abdominal Exam Present: soft - Routine Extremities Exam Absent: edema Results - Labs CBC & Chem 7: 05/22/18 04:15 05/22/18 04:15 Laboratory Results - last 24 hr 05/21/18 05/21/18 05/21/18 12:54 12:54 12:54 CBC w Diff Auto diff final WBC 7.9 RBC 5.42 Hgb 17.2 H Hct 50.9 MCV 93.9 MCH 31.6 MCHC 33.7 RDW 13.4 Plt Count 153 MPV 10.4 Neut % (Auto) 73.1 H Lymph % (Auto) 17.3 [place] % (Auto) 7.3 Eos % (Auto) 1.5 Baso % (Auto) 0.8 Neut # (Auto) 5.7 Lymph # (Auto) 1.4 [place] # (Auto) 0.6 Eos # (Auto) 0.1 Baso # (Auto) 0.1 WBC Differential . Differential Comment . PT 10.7 INR 1.1 Sodium 139 Potassium 4.0 Chloride 105 Carbon Dioxide 22.2 Anion Gap 12 BUN 24 H Creatinine 1.20 Estimated GFR 59 L Random Glucose 118 H Calcium 8.6 Total Bilirubin 0.9 AST 23 ALT 23 Alkaline Phosphatase 146 H Troponin I 0.05 Total Protein 7.2 Albumin 3.9 TSH 2.560 05/21/18 05/22/18 05/22/18 20:10 04:15 04:15 CBC w Diff Auto diff final WBC 7.8 RBC 4.69 Hgb 15.0 D Hct 44.3 MCV 94.5 MCH 32.0 MCHC 33.8 RDW 13.3 Plt Count 138 L MPV 10.0 Neut % (Auto) 89.7 H Lymph % (Auto) 8.2 L [place] % (Auto) 1.5 Eos % (Auto) 0.3 Baso % (Auto) 0.3 Neut # (Auto) 7.1 Lymph # (Auto) 0.6 L [place] # (Auto) 0.1 Eos # (Auto) 0.0 Baso # (Auto) 0.0 WBC Differential . Differential Comment . PT INR Sodium 140 Potassium 4.4 Chloride 109 H Carbon Dioxide 20.9 L Anion Gap 10 BUN 19 H Creatinine 0.91 Estimated GFR 81 L Random Glucose 121 H Calcium 7.9 L Total Bilirubin 0.6 AST 26 ALT 20 Alkaline Phosphatase 121 H Troponin I 0.68 H* 0.67 H* Total Protein 6.4 D Albumin 3.4 TSH - Imaging Impressions Chest X-Ray 05/21/18 12:47 CONCLUSION: Stable interstitial changes bilaterally. No acute cardiopulmonary abnormality is identified. Assessment and Plan - Plan New onset afib; currently in SR; initiated warfarin (due to known severe mitral regurgitation); may consider changing to eliquis if INRs not stable due to his diet; on bb at home given bradycardia seen now will hold off on additional rate control meds. - Attending Attestation elev trop; no symptoms, known stable CAD by cath last year, likely from RVR, continue medical mgt. Ok to d/c home from cardiac standpoint, can f/u with me in 1-2 weeks.
[2018-05-22 11:16] VITALS: O2SAT 97
--- NOTE | 2018-05-22 11:18 | P.DS ---
Date of admission: 05/21/18 14:35 Primary care physician: Abilio Childers MD Brief History from admission: Mr. Guadalupe is a 77 year old male. He has a history of Bradycardia associated with medications. Presently he is on a PRN Metoprolol, but he denies using that this morning (he takes it for systolic BP >155 mmHg). He was feeling dizzy today. He took his pulse with an oximeter and it was at 160 bpm. He is found to be in an A-fib RVR pattern at arrival to the ER. Diltiazem was provided and temporarily resolved his RVR, but induced hypotension. Diltiazem is discontinued, RVR returned without diltiazem. We discussed Amiodarone as an alternative treatment. He denies chest pain, or syncope. No other complaints. DS: Diagnosis - Discharge Diagnosis (1) Hypotension Status: Acute (2) Atrial fibrillation with RVR Status: Acute (3) Bronchitis Status: Acute DS: Medications - Discharge Medications Prescriptions: digoxin 125 mcg PO DAILY #30 tab warfarin [Coumadin] 2.5 mg PO DAILY@1600 #30 tab DS: Summary Hospital Course: Mr. Guadalupe is a 74-year-old male. He was admitted secondary to A. fib RVR. This may have been triggered by an underlying bronchitis which appears to be viral. Digoxin was initially attempted as a treatment but caused hypotension. Subsequently I initiated amiodarone, however cardiology's has seen this patient and to him on digoxin. He seems to have a good response of digoxin has not had recurrence of tachycardia overnight. Coumadin is initiated especially in light of his mitral regurgitation. Cardiology has cleared this patient for discharge with outpatient follow-up of his INR and to follow with his PCP and cardiology as an outpatient. Patient is asymptomatic with rate control. Negative ACS evaluation. Medically stable and cleared for discharge home today. - Time Spent with Patient Total time spent providing and/or coordinating discharge services: Less than 30 minutes Exam Vital signs: Vital Signs 05/21/18 12:22 05/21/18 12:35 05/21/18 12:47 Temperature 98.3 F Pulse Rate 143 H 139 H Respiratory Rate 18 19 Blood Pressure 153/71 H 118/74 Pulse Oximetry 96 96 96 05/21/18 12:55 05/21/18 12:57 05/21/18 13:13 Temperature Pulse Rate 92 H 107 H 90 Respiratory Rate 19 18 19 Blood Pressure 78/60 L 98/68 L 95/77 L Pulse Oximetry 95 98 98 05/21/18 14:16 05/21/18 14:22 05/21/18 14:45 Temperature Pulse Rate 117 H 128 H 130 H Respiratory Rate 16 18 18 Blood Pressure 100/70 93/77 L 117/88 Pulse Oximetry 93 L 05/21/18 15:40 05/21/18 16:21 05/21/18 16:25 Temperature Pulse Rate 132 H 122 H 126 H Respiratory Rate 18 18 25 H Blood Pressure 116/81 113/74 96/77 L Pulse Oximetry 96 95 05/21/18 17:00 05/21/18 18:00 05/21/18 19:00 Temperature 98.7 F Pulse Rate 66 70 66 Respiratory Rate 31 H 26 H 22 Blood Pressure 152/85 H 140/84 Pulse Oximetry 95 96 96 05/21/18 19:38 05/21/18 20:00 05/21/18 21:00 Temperature 98 F Pulse Rate 55 L 60 Respiratory Rate 25 H 21 Blood Pressure 147/68 H 155/76 H Pulse Oximetry 96 98 05/21/18 22:00 05/21/18 23:00 05/22/18 00:00 Temperature 98 F Pulse Rate 58 L 60 60 Respiratory Rate 20 22 23 Blood Pressure 157/71 H 138/73 150/76 H Pulse Oximetry 05/22/18 01:00 05/22/18 02:00 05/22/18 03:00 Temperature Pulse Rate 64 58 L 52 L Respiratory Rate 19 18 17 Blood Pressure 133/60 155/65 H 128/68 Pulse Oximetry 05/22/18 04:00 05/22/18 05:00 05/22/18 06:00 Temperature 97.6 F Pulse Rate 58 L 60 54 L Respiratory Rate 24 22 24 Blood Pressure 126/74 137/69 142/72 H Pulse Oximetry 05/22/18 07:00 05/22/18 08:00 05/22/18 09:00 Temperature Pulse Rate 54 L 58 L 66 Respiratory Rate 16 30 H 30 H Blood Pressure 131/55 L 139/75 201/77 H Pulse Oximetry Intake & Output 05/21/18 05/22/18 05/22/18 18:59 06:59 18:59 Intake Total 1999 1420 / 1420 Balance 1999 1420 / 1420 Weight 66 kg Intake: IV 1999 1000 / 1000 NS Inj 1,000 ML @ 100 mls/hr IV 1000 / 1000 .CONT .Q10H NIMA Rx#:[id number] NS Inj 1,000 ML @ Wide Open IV. 1999 SIG BOLUS NIMA Rx#:[id number] Oral 420 / 420 Other: # Voids 3 Date of Last Bowel Movement 05/21/18 05/21/18 05/21/18 # Bowel Movements 0 Results Procedures completed during hospitalization: None Labs on day of discharge: Labs from last 24 hours 05/22/18 05/22/18 05/21/18 04:15 04:15 20:10 CBC w Diff Auto diff final WBC 7.8 RBC 4.69 Hgb 15.0 D Hct 44.3 MCV 94.5 MCH 32.0 MCHC 33.8 RDW 13.3 Plt Count 138 L MPV 10.0 Neut % (Auto) 89.7 H Lymph % (Auto) 8.2 L [place] % (Auto) 1.5 Eos % (Auto) 0.3 Baso % (Auto) 0.3 Neut # (Auto) 7.1 Lymph # (Auto) 0.6 L [place] # (Auto) 0.1 Eos # (Auto) 0.0 Baso # (Auto) 0.0 WBC Differential . Differential Comment . PT INR Sodium 140 Potassium 4.4 Chloride 109 H Carbon Dioxide 20.9 L Anion Gap 10 BUN 19 H Creatinine 0.91 Estimated GFR 81 L Random Glucose 121 H Calcium 7.9 L Total Bilirubin 0.6 AST 26 ALT 20 Alkaline Phosphatase 121 H Troponin I 0.67 H* 0.68 H* Total Protein 6.4 D Albumin 3.4 TSH 05/21/18 05/21/18 05/21/18 12:54 12:54 12:54 CBC w Diff Auto diff final WBC 7.9 RBC 5.42 Hgb 17.2 H Hct 50.9 MCV 93.9 MCH 31.6 MCHC 33.7 RDW 13.4 Plt Count 153 MPV 10.4 Neut % (Auto) 73.1 H Lymph % (Auto) 17.3 [place] % (Auto) 7.3 Eos % (Auto) 1.5 Baso % (Auto) 0.8 Neut # (Auto) 5.7 Lymph # (Auto) 1.4 [place] # (Auto) 0.6 Eos # (Auto) 0.1 Baso # (Auto) 0.1 WBC Differential . Differential Comment . PT 10.7 INR 1.1 Sodium 139 Potassium 4.0 Chloride 105 Carbon Dioxide 22.2 Anion Gap 12 BUN 24 H Creatinine 1.20 Estimated GFR 59 L Random Glucose 118 H Calcium 8.6 Total Bilirubin 0.9 AST 23 ALT 23 Alkaline Phosphatase 146 H Troponin I 0.05 Total Protein 7.2 Albumin 3.9 TSH 2.560 - Impressions ITS Impressions Chest X-Ray 05/21/18 12:47 CONCLUSION: Stable interstitial changes bilaterally. No acute cardiopulmonary abnormality is identified. Discharge Plan - Discharge Disposition Patient Disposition: Discharge Home - Discharge Condition Condition: Stable - Discharge Order Discharge Orders: Discharge Order (Routine); Ordered 05/22/18 Ordered By: Javan Wellington - Discharge Details Anticipated Discharge Date: 05/22/18 - Physicians Team Primary Care Provider: Abilio Childers Attending Provider: Javan Wellington Other Providers: Jian Henderson MD ; [employer]
--- NOTE | 2018-05-22 14:22 | ECHRPT ---
Indication: ATRIAL FIB/FLUTTER CONCLUSIONS Normal left ventricular size. There is assymetric septal hypertrophy. There is dynamic "pseudo" outflow tract obstructive physiology due to concentric hypertrophy and hyperdynamic systolic function. The left ventricular systolic function is normal with an estimated ejection fraction in the range of 55-60%. The left atrial size is mildly dilated. The right atrial size is mildly dilated. 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 Mitral valve annuloplasty ring is present. Enlongated leaflets of the mitral valve with systolic anterior motion.Mid systolic closure of the ao rtic valve. Moderate to severe left ventricular outflow tract gradient from the MAHI at the basal portion of the septum. Severe aortic valve stenosis. Aortic valve mean gradient is 55.3 mmHg. Aortic valve area is 0.8 cm. There is mild tricuspid valve regurgitation. The estimated pulmonary arterial pressure is 50.4 mmHg. moderate mitral valve regurgitation BP: / HR: Rhythm: Sinus MEASUREMENTS (Male / Female) Normal Values Technical Quality:Fair 2D ECHO LV Diastolic Diameter PLAX 4.8 cm 4.2 - 5.9 / 3.9 - 5.3 cm IVS Diastolic Thickness 1.8 cm 0.6 - 1.0 / 0.6 - 0.9 cm LVPW Diastolic Thickness 1.3 cm 0.6 - 1.0 / 0.6 - 0.9 cm LV Relative Wall Thickness 0.6 RV Internal Dim ED PLAX 2.5 cm LVOT Diameter 2.2 cm Aortic Root Diameter 3.6 cm LA Systolic Diameter LX 4.0 cm 3.0 - 4.0 / 2.7 - 3.8 cm DOPPLER AV Peak Velocity 510.5 cm/s AV Peak Gradient 104.2 mmHg AV Mean Gradient 55.2 mmHg AV Velocity Time Integral 130.3 cm LVOT Peak Velocity 210.7 cm/s LVOT Peak Gradient 17.8 mmHg LVOT Velocity Time Integral 27.4 cm AV Area Cont Eq vti 0.8 cm AV Area Cont Eq pk 1.6 cm Mitral E Point Velocity 119.0 cm/s Mitral A Point Velocity 90.8 cm/s Mitral E to A Ratio 1.3 LV E' Lateral Velocity 7.0 cm/s Mitral E to LV E' Lateral Ratio 17.0 LV E' Septal Velocity 3.3 cm/s Mitral E to LV E' Septal Ratio 35.7 TR Peak Velocity 318.0 cm/s TR Peak Gradient 40.4 mmHg Right Atrial Pressure 10.0 mmHg Pulmonary Artery Systolic Pressu 50.4 mmHg Right Ventricular Systolic Press 50.4 mmHg PV Peak Velocity 70.7 cm/s PV Peak Gradient 2.0 mmHg FINDINGS LEFT VENTRICLE Normal left ventricular size. There is assymetric septal hypertrophy. There is dynamic "pseudo" outflow tract obstructive physiology due to concentric hypertrophy and hyperdynamic systolic function. The left ventricular systolic function is normal with an estimated ejection fraction in the range of 55-60%. RIGHT VENTRICLE Normal right ventricular size and systolic function. LEFT ATRIUM The left atrial size is mildly dilated. RIGHT ATRIUM The right atrial size is mildly dilated. 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 No atrial level shunt is demonstrated by color flow Doppler interrogation. AORTA The aortic root and proximal ascending aorta are normal in size on limited imaging. MITRAL VALVE Mitral valve annuloplasty ring is present. Enlongated leaflets of the mitral valve with systolic anterior motion. AORTIC VALVE Mid systolic closure of the aortic valve. Moderate to severe left ventricular outflow tract gradient from the MAHI at the basal portion of the septum. Severe aortic valve stenosis. Aortic valve mean gradient is 55.3 mmHg. Aortic valve area is 0.8 cm. TRICUSPID VALVE There is mild tricuspid valve regurgitation. The estimated pulmonary arterial pressure is 50.4 mmHg. PULMONARY VALVE No pulmonary valve regurgitation or stenosis. VESSELS The inferior vena cava was not well visualized. PERICARDIUM No pericardial effusion. Isac Singh MD, FACC, [facility] [place] (Electronically Signed) Final Date:22 May 2018 14:21
[2018-05-22 14:56] VITALS: BP 148/73; PULSE 52; RESP 19
--- NOTE | 2018-05-22 15:41 | ECG ---
Date Performed: 05/21/2018 Time Performed: 12:37:54 PTAGE: 77 years EKG: Atrial Flutter with 2:1 heart block ABNORMAL ECG INTERPRETATION BASED ON A DEFAULT AGE OF 4 0 YEARS PREVIOUS TRACING :07/16/2017 @02.45 Compared to previous tracing, patient is now atrial f lutter with 2:1 heart block. DOCTOR: Lorena Squires Interpretating Date/Time 05/22/2018 15:41:34
[2018-05-23] MEDS ORDERED: Digoxin 125 MCG Tablet PO SCH (09:00)
== END 2018-05-22 14:25 | disposition home or self-care (01) ==
LOC: PHED 12:10 → PHEDA 14:35 → PHICU 16:15
PROVIDERS: ADMIT Hospitalist; ATTEND Hospitalist